=== PATIENT | male | born 1955 | race Caucasian/White ===

== ENCOUNTER 2016-06-29 11:16 | Emergency (ER) | payer OTHER | END 2016-06-29 14:34 | disposition home or self-care (01) | DX: F41.9 Anxiety disorder, unspecified (principal); F31.9 Bipolar disorder, unspecified; I10 Essential (primary) hypertension; E03.9 Hypothyroidism, unspecified ==

== ENCOUNTER 2017-07-13 09:29 | Emergency (ER) | payer OTHER ==
--- NOTE | 2017-07-13 11:17 | ED Physician Documentation ---
History of Present Illness - Stated complaint Stated Complaint: LEFT EAR PX - Chief complaint Chief Complaint: Heent - History obtained from History obtained from: Patient - History of Present Illness Timing: How many days ago (3) Pain level max: 6 Pain level now: 6 - Additonal information Additional information: Patient is a 62-year-old male who presents to the emergency department with left ear pain. Recently started wearing hearing aids. This is been ongoing since Sunday. Nothing makes the pain better. Worse with cold air. No drainage. No fevers. No trauma. Review of Systems Constitutional: denies: Fever, Chills Nose: reports: Rhinorrhea / runny nose, Congestion (Has felt like his sinuses have been congested today.) Throat: denies: Sore throat Cardiac: denies: Chest pain / pressure Respiratory: denies: Cough GI: denies: Nausea, Vomiting, Diarrhea Skin: denies: Rash Musculoskeletal: denies: Neck pain, Back pain Neurologic: denies: Headache PD PAST MEDICAL HISTORY - Past Medical History Past Medical History: Yes Cardiovascular: Hypertension Respiratory: Asthma, Sleep apnea Neuro: None Endocrine/Autoimmune: HyPOthyroidism GI: GERD : None HEENT: None Psych: Depression Musculoskeletal: Chronic back pain Derm: None - Past Surgical History Past Surgical History: Yes General: Colonoscopy, EGD Ortho: Arthroscopic surgery, Carpal Tunnel surgery, Spine surgery, Other - Present Medications Home Medications: Ambulatory Orders Medication Instructions Recorded Confirmed Albuterol Sulfate [Albuterol 2 puffs INH Q6HR 01/17/14 03/01/15 Sulfate Hfa] Amitriptyline [Elavil] 100 mg PO QPM 01/17/14 03/01/15 Carbidopa/Levodopa [Carbidopa-Levo 1 tab PO DAILY 01/17/14 03/01/15 10-100 mg Odt] Cyclobenzaprine [Flexeril] 10 mg PO TID 01/17/14 03/01/15 Fexofenadine [Camila] 180 mg PO DAILY 01/17/14 03/01/15 Fluticasone [Flonase] 1 spray INH DAILY 01/17/14 03/01/15 Fluticasone/Salmeterol 100/50 1 puffs INH DAILY 01/17/14 03/01/15 [Advair 100 Mcg/50 Mcg] Gabapentin 1,200 mg PO TID 01/17/14 03/01/15 Lisinopril 20 mg PO DAILY 01/17/14 03/01/15 Methadone 10 mg PO BID 01/17/14 03/01/15 Omeprazole [PriLOSEC] 20 mg PO BID 01/17/14 03/01/15 cloNIDine HCl [Clonidine HCl] 0.1 mg PO BID 01/25/14 03/01/15 Bupropion HCl [Bupropion HCl Sr] 150 mg PO BID 07/07/14 03/01/15 Calcium Carbonate [Calcium] 500 mg PO DAILY 07/07/14 03/01/15 Hydrochlorothiazide 25 mg PO DAILY 07/07/14 03/01/15 Liothyronine Sodium [Cytomel] 25 mcg PO DAILY 07/07/14 03/01/15 Vardenafil HCl [Levitra] 20 mg PO DAILY PRN 07/07/14 03/01/15 Vit D3-Vit K/Berberine/Hops 1 each PO DAILY 07/07/14 03/01/15 [Ostera Tablet] Modafinil 200 mg 10/27/14 03/01/15 Tadalafil [Cialis] 20 mg PO DAILY 10/27/14 03/01/15 diphenhydrAMINE [Benadryl] 25 mg PO Q4HR PRN 10/27/14 03/01/15 Levothyroxine [Synthroid] 50 mg PO DAILY 03/01/15 03/01/15 Oxycodone HCl/Acetaminophen 1 - 2 tab PO Q4H PRN #15 tablet 06/17/15 [Percocet 5-325 mg Tablet] Ciproflox/Dexameth Otic Drops 4 drops LEFTEAR BID 7 Days #1 07/13/17 [Ciprodex] bottle - Allergies Allergies/Adverse Reactions: Allergies Allergy/AdvReac Type Severity Reaction Status Date / Time Iodine and Iodide Containing Allergy Severe Respiratory Verified 07/13/17 09:40 Produc morphine Allergy Respiratory Verified 07/13/17 09:40 codeine AdvReac Nausea Verified 07/13/17 09:40 promethazine HCl * AdvReac Nausea Verified 07/13/17 09:40 [From Phenergan] contrast dye Allergy Unknown Uncoded 07/13/17 09:40 iv dye Allergy Respiratory Uncoded 07/13/17 09:40 - Social History Does the pt smoke?: No Smoking Status: Never smoker Does the pt drink ETOH?: No Does the pt have substance abuse?: No - Immunizations Immunizations are current?: Yes - POLST Patient has POLST: No PD ED PE NORMAL - Vitals Vital signs reviewed: Yes - General General: Alert and oriented X 3, No acute distress - HEENT HEENT: Moist mucous membranes, Pharynx benign, Other (Right ear is normal. Left ear canal is swollen, erythematous with white drainage. TM appears intact. No mastoid tenderness. Also has mild tenderness over the frontal sinuses bilaterally.) - Neck Neck: Supple, no meningeal sign, No adenopathy - Cardiac Cardiac: RRR, Strong equal pulses - Respiratory Respiratory: No respiratory distress, Clear bilaterally - Derm Derm: Warm and dry - Neuro Neuro: Alert and oriented X 3 - Psych Psych: Normal mood, Normal affect Results - Vitals Vitals: Vital Signs - 24 hr 07/13/17 09:35 Temperature 36.4 C L Heart Rate 69 Respiratory 18 Rate Blood Pressure 136/55 H O2 Saturation 98 Oxygen O2 Source Room air PD MEDICAL DECISION MAKING - ED course Complexity details: considered differential, d/w patient ED course: Patient is a 62-year-old male who presents to the emergency department with what appears to be a viral URI with sinus congestion as well as a left acute otitis externa. This is likely secondary to his hearing aid use. Recommend he clean the hearing aids well. Will place on Ciprodex otic and follow-up with his doctor. Patient is well-appearing, nontoxic. Will hold antibiotics as the sinus congestion just started today. No fevers. Well-appearing. Patient counseled regarding signs and symptoms for which I believe and urgent re- evaluation would be necessary. Patient with good understanding of and agreement to plan and is comfortable going home at this time This document was made in part using voice recognition software. While efforts are made to proofread this document, sound alike and grammatical errors may occur. Departure - Departure Disposition: Home, Self Care Clinical Impression: Otitis externa Qualifiers: Otitis externa type: unspecified type Chronicity: acute Laterality: left Qualified Code(s): H60.502 - Unspecified acute noninfective otitis externa, left ear URI (upper respiratory infection) Qualifiers: URI type: unspecified viral URI Qualified Code(s): J06.9 - Acute upper respiratory infection, unspecified Condition: Good Instructions: ED Otitis Externa Follow-Up: Xu Cha MD [Primary Care Provider] - Within 1 week Prescriptions: Ciproflox/Dexameth Otic Drops [Ciprodex] 4 drops LEFTEAR BID 7 Days #1 bottle Comments: Return if you worsen. This should improve rapidly over the next few days.
[2017-07-13 11:34] VITALS: BP 112/56
== END 2017-07-13 11:29 | disposition home or self-care (01) ==
LOC: ED 09:29
DX: H60.502 Unspecified acute noninfective otitis externa, left ear (principal); J06.9 Acute upper respiratory infection, unspecified; B97.89 Other viral agents as the cause of diseases classified elsewhere; Z97.4 Presence of external hearing-aid; I10 Essential (primary) hypertension; J45.909 Unspecified asthma, uncomplicated; E03.9 Hypothyroidism, unspecified; K21.9 Gastro-esophageal reflux disease without esophagitis
CPT/HCPCS: 99283

== ENCOUNTER 2017-07-17 20:09 | Emergency (ER) | payer OTHER ==
[2017-07-17] MEDS ORDERED: oxyCOD/ACETAMIN 5 MG/325 MG TABLET PO STA (20:56)
--- NOTE | 2017-07-17 20:59 | ED Physician Documentation ---
PD HPI LOWER EXT INJURY - Stated complaint Stated Complaint: R LEG LAC/INJ - Chief complaint Chief Complaint: Ext Problem - History obtained from History obtained from: Patient - History of Present Illness PD HPI LOW EXT INJURY LOCATION: Other (He was chopping wood, the sledgehammer got deflected off the hatchet and hit his leg and he is worried about a recurrent fracture, he fractured that leg at the age of 22. Tetanus is up-to- date.) Review of Systems Constitutional: denies: Fever, Chills Cardiac: denies: Chest pain / pressure, Palpitations Respiratory: denies: Dyspnea, Cough PD PAST MEDICAL HISTORY - Past Medical History Cardiovascular: Hypertension Respiratory: Asthma, Sleep apnea Neuro: None Endocrine/Autoimmune: HyPOthyroidism GI: GERD : None HEENT: None Psych: Depression Musculoskeletal: Chronic back pain Derm: None - Past Surgical History Past Surgical History: Yes General: Colonoscopy, EGD Ortho: Arthroscopic surgery, Carpal Tunnel surgery, Spine surgery, Other - Present Medications Home Medications: Ambulatory Orders Medication Instructions Recorded Confirmed Albuterol Sulfate [Albuterol 2 puffs INH Q6HR 01/17/14 03/01/15 Sulfate Hfa] Amitriptyline [Elavil] 100 mg PO QPM 01/17/14 03/01/15 Carbidopa/Levodopa [Carbidopa-Levo 1 tab PO DAILY 01/17/14 03/01/15 10-100 mg Odt] Cyclobenzaprine [Flexeril] 10 mg PO TID 01/17/14 03/01/15 Fexofenadine [Camila] 180 mg PO DAILY 01/17/14 03/01/15 Fluticasone [Flonase] 1 spray INH DAILY 01/17/14 03/01/15 Fluticasone/Salmeterol 100/50 1 puffs INH DAILY 01/17/14 03/01/15 [Advair 100 Mcg/50 Mcg] Gabapentin 1,200 mg PO TID 01/17/14 03/01/15 Lisinopril 20 mg PO DAILY 01/17/14 03/01/15 Methadone 10 mg PO BID 01/17/14 03/01/15 Omeprazole [PriLOSEC] 20 mg PO BID 01/17/14 03/01/15 cloNIDine HCl [Clonidine HCl] 0.1 mg PO BID 01/25/14 03/01/15 Bupropion HCl [Bupropion HCl Sr] 150 mg PO BID 07/07/14 03/01/15 Calcium Carbonate [Calcium] 500 mg PO DAILY 07/07/14 03/01/15 Hydrochlorothiazide 25 mg PO DAILY 07/07/14 03/01/15 Liothyronine Sodium [Cytomel] 25 mcg PO DAILY 07/07/14 03/01/15 Vardenafil HCl [Levitra] 20 mg PO DAILY PRN 07/07/14 03/01/15 Vit D3-Vit K/Berberine/Hops 1 each PO DAILY 07/07/14 03/01/15 [Ostera Tablet] Modafinil 200 mg 10/27/14 03/01/15 Tadalafil [Cialis] 20 mg PO DAILY 10/27/14 03/01/15 diphenhydrAMINE [Benadryl] 25 mg PO Q4HR PRN 10/27/14 03/01/15 Levothyroxine [Synthroid] 50 mg PO DAILY 03/01/15 03/01/15 Oxycodone HCl/Acetaminophen 1 - 2 tab PO Q4H PRN #15 tablet 06/17/15 [Percocet 5-325 mg Tablet] Ciproflox/Dexameth Otic Drops 4 drops LEFTEAR BID 7 Days #1 07/13/17 [Ciprodex] bottle - Allergies Allergies/Adverse Reactions: Allergies Allergy/AdvReac Type Severity Reaction Status Date / Time Iodine and Iodide Containing Allergy Severe Respiratory Verified 07/13/17 09:40 Produc morphine Allergy Respiratory Verified 07/13/17 09:40 codeine AdvReac Nausea Verified 07/13/17 09:40 promethazine HCl * AdvReac Nausea Verified 07/13/17 09:40 [From Phenergan] contrast dye Allergy Unknown Uncoded 07/13/17 09:40 iv dye Allergy Respiratory Uncoded 07/13/17 09:40 - Social History Does the pt smoke?: No Smoking Status: Never smoker Does the pt drink ETOH?: No Does the pt have substance abuse?: No - Immunizations Immunizations are current?: Yes - POLST Patient has POLST: No PD ED PE NORMAL - Vitals Vital signs reviewed: Yes - General General: Alert and oriented X 3, No acute distress - Extremities Extremities: Other (There is an abrasion over the anterior right mid seals with underlying hematoma and tenderness but no deformity. No other injuries.) - Neuro Neuro: Alert and oriented X 3, Normal speech Results - Vitals Vitals: Vital Signs - 24 hr 07/17/17 20:27 Temperature 36.8 C Heart Rate 72 Respiratory 18 Rate Blood Pressure 135/78 H O2 Saturation 96 Oxygen O2 Source Room air - Rads (name of study) R tib fib Radiology: EMP read contemporaneously (Old healed fracture deformity, no acute disease) PD MEDICAL DECISION MAKING - ED course ED course: He has a contusion of the right leg with overlying hematoma and abrasion, nothing that needs suturing. Tetanus is up to date. X-ray negative for acute disease. Conservative care was advised. Departure - Departure Disposition: Home, Self Care Clinical Impression: Abrasion, right lower leg, initial encounter Contusion of right leg Qualifiers: Encounter type: initial encounter Qualified Code(s): S80.11XA - Contusion of right lower leg, initial encounter Condition: Good Record reviewed to determine appropriate education?: Yes Instructions: ED Contusion Lower Ext Comments: Soap and water and a bandage with an Miguel Angel wrap are all that is necessary, not too tight. Return if worse or for signs of infection, redness, increased swelling, drainage, fevers. Your blood pressure was elevated today on check into the emergency department. This does not mean that you have hypertension, it is a common phenomenon to come to the emergency department and have elevated blood pressure. I recommend that you see your primary care physician within the week to have it rechecked when you are feeling better.
[2017-07-17] MEDS ORDERED: traMADol 50 MG TABLET PO STA (21:06)
--- NOTE | 2017-07-17 21:57 | XRAY Report ---
EXAM: RIGHT TIBIA/FIBULA RADIOGRAPHY EXAM DATE: 07/17/2017 09:35 PM. CLINICAL HISTORY: Leg injury. Pain. COMPARISON: None. TECHNIQUE: 2 views. FINDINGS: Bones: Old mid shaft fracture deformities of tibia and fibula. No acute traumatic or destructive bone abnormality. Joints: The visualized knee and ankle joints are normal. No effusions. Soft Tissues: Normal. No soft tissue swelling. IMPRESSION: No acute bony abnormality. [facility] Referring Provider Line: [phone] SITE ID: [id number]
[2017-07-17 22:15] VITALS: BP 153/99
== END 2017-07-17 22:16 | disposition home or self-care (01) ==
LOC: ED 20:09
DX: S80.811A Abrasion, right lower leg, initial encounter (principal); W22.8XXA Striking against or struck by other objects, initial encounter; I10 Essential (primary) hypertension; E03.9 Hypothyroidism, unspecified
CPT/HCPCS: 73590; 99283; A9270

== ENCOUNTER 2018-02-26 08:00 | Outpatient (CLI) | payer OTHER ==
[2018-02-26 12:30] LABS: BASOPHILS % (AUTO) 0.6 %; EOSINOPHILS # (AUTO) 0.3 10^3/uL (0.0-0.7); EOSINOPHILS % (AUTO) 4.4 %; HGB - HEMOGLOBIN 14.6 g/dL (14.0-18.0); LYMPHOCYTES # (AUTO) 2.2 10^3/uL (1.5-3.5); LYMPHOCYTES % (AUTO) 27.2 %; MEAN CORPUSCULAR HEMOGLOBIN 29.9 pg (27.0-31.0); MEAN CORPUSCULAR HGB CONC 34.5 g/dL (32.0-36.0); MEAN CORPUSCULAR VOLUME 86.5 fL (80.0-94.0); MEAN PLATELET VOLUME 8.5 fL (7.4-11.4); MONOCYTES % (AUTO) 12.3 %; NEUTROPHILS # (AUTO) 4.4 10^3/uL (1.5-6.6); NEUTROPHILS % (AUTO) 55.5 %; PLT - PLATELET COUNT 234 10^3/uL (130-450)
[2018-02-26 12:46] LABS: ALBUMIN 4.2 g/dL (3.2-5.5); ALBUMIN/GLOBULIN RATIO 1.1 (1.0-2.2); ALKALINE PHOSPHATASE 73 IU/L (42-121); ALT ALANINE AMINOTRANSFERASE < 10 IU/L (10-60); AST ASPARTATE AMINOTRANSFERASE 27 IU/L (10-42); BILIRUBIN,TOTAL 0.6 mg/dL (0.2-1.0); BUN - BLOOD UREA NITROGEN 18 mg/dL (6-20); CALCIUM 9.3 mg/dL (8.5-10.3); CARBON DIOXIDE - CO2 30 mmol/L (21-32); CHLORIDE 97 mmol/L (101-111); CHOLESTEROL 172 mg/dL; CREATININE 0.9 mg/dL (0.6-1.2); GFR - MDRD 86 (>89); GLUCOSE 90 mg/dL (70-100); HDL CHOLESTEROL 57 mg/dL; LDL CHOLESTEROL,CALCULATED 98 mg/dL; LDL/HDL RATIO 1.7 (<3.6); SODIUM 136 mmol/L (135-145); TOTAL PROTEIN 7.9 g/dL (6.7-8.2); VLDL CHOLESTEROL 17 mg/dL
== END 2018-02-26 08:01 | disposition home or self-care (01) ==
LOC: LAB.WCP 08:00
PROVIDERS: ATTEND Family Medicine
DX: I10 Essential (primary) hypertension (principal); K21.9 Gastro-esophageal reflux disease without esophagitis
CPT/HCPCS: 36415; 80053; 80061; 83721; 84153; 84443; 85025

== ENCOUNTER 2018-04-19 01:08 | Emergency (ER) | payer OTHER ==
--- NOTE | 2018-04-19 01:42 | ED Physician Documentation ---
History of Present Illness - Stated complaint Stated Complaint: ELECTRICAL SHOCK/SHOULDER PX - Chief complaint Chief Complaint: General - History obtained from History obtained from: Patient - History of Present Illness Timing: Today (approximately 1-2 hours [employer]) Pain level now: 1 - Additonal information Additional information: Patient was repairing a hot water heater in his home tonight when his left hand contacted a bare wire. He says the wire carried a current of 240 V. He is right- hand dominant. He felt some mild chest discomfort and mild paresthesias and numbness in both hands. The symptoms have improved, chest pain resolved. PD PAST MEDICAL HISTORY - Past Medical History Past Medical History: Yes Cardiovascular: Hypertension Respiratory: Asthma, Sleep apnea Endocrine/Autoimmune: HyPOthyroidism GI: GERD : None HEENT: None Psych: Depression Musculoskeletal: Chronic back pain Derm: None - Past Surgical History Past Surgical History: Yes General: Colonoscopy, EGD Ortho: Arthroscopic surgery, Carpal Tunnel surgery, Spine surgery, Other - Present Medications Home Medications: Ambulatory Orders Medication Instructions Recorded Confirmed Albuterol Sulfate [Albuterol 2 puffs INH Q6HR 01/17/14 03/01/15 Sulfate Hfa] Amitriptyline [Elavil] 100 mg PO QPM 01/17/14 03/01/15 Carbidopa/Levodopa [Carbidopa-Levo 1 tab PO DAILY 01/17/14 03/01/15 10-100 mg Odt] Cyclobenzaprine [Flexeril] 10 mg PO TID 01/17/14 03/01/15 Fexofenadine [Camila] 180 mg PO DAILY 01/17/14 03/01/15 Fluticasone [Flonase] 1 spray INH DAILY 01/17/14 03/01/15 Fluticasone/Salmeterol 100/50 1 puffs INH DAILY 01/17/14 03/01/15 [Advair 100 Mcg/50 Mcg] Gabapentin 1,200 mg PO TID 01/17/14 03/01/15 Lisinopril 20 mg PO DAILY 01/17/14 03/01/15 Methadone 10 mg PO BID 01/17/14 03/01/15 Omeprazole [PriLOSEC] 20 mg PO BID 01/17/14 03/01/15 cloNIDine HCl [Clonidine HCl] 0.1 mg PO BID 01/25/14 03/01/15 Bupropion HCl [Bupropion HCl Sr] 150 mg PO BID 07/07/14 03/01/15 Calcium Carbonate [Calcium] 500 mg PO DAILY 07/07/14 03/01/15 Hydrochlorothiazide 25 mg PO DAILY 07/07/14 03/01/15 Liothyronine Sodium [Cytomel] 25 mcg PO DAILY 07/07/14 03/01/15 Vardenafil HCl [Levitra] 20 mg PO DAILY PRN 07/07/14 03/01/15 Vit D3-Vit K/Berberine/Hops 1 each PO DAILY 07/07/14 03/01/15 [Ostera Tablet] Modafinil 200 mg 10/27/14 03/01/15 Tadalafil [Cialis] 20 mg PO DAILY 10/27/14 03/01/15 diphenhydrAMINE [Benadryl] 25 mg PO Q4HR PRN 10/27/14 03/01/15 Levothyroxine [Synthroid] 50 mg PO DAILY 03/01/15 03/01/15 Oxycodone HCl/Acetaminophen 1 - 2 tab PO Q4H PRN #15 tablet 06/17/15 [Percocet 5-325 mg Tablet] Ciproflox/Dexameth Otic Drops 4 drops LEFTEAR BID 7 Days #1 07/13/17 [Ciprodex] bottle - Allergies Allergies/Adverse Reactions: Allergies Allergy/AdvReac Type Severity Reaction Status Date / Time Iodine and Iodide Containing Allergy Severe Respiratory Verified 04/19/18 01:19 Produc morphine Allergy Respiratory Verified 04/19/18 01:19 codeine AdvReac Nausea Verified 04/19/18 01:19 promethazine HCl * AdvReac Nausea Verified 04/19/18 01:19 [From Phenergan] contrast dye Allergy Unknown Uncoded 04/19/18 01:19 iv dye Allergy Respiratory Uncoded 04/19/18 01:19 - Social History Does the pt smoke?: No Smoking Status: Never smoker Does the pt drink ETOH?: No Does the pt have substance abuse?: No - Immunizations Immunizations are current?: Yes - POLST Patient has POLST: No Results - Vitals Vitals: Vital Signs - 24 hr 04/19/18 04/19/18 01:14 02:45 Temperature 36.9 C Heart Rate 71 74 Respiratory 18 18 Rate Blood Pressure 135/74 H 134/65 H O2 Saturation 96 98 Oxygen O2 Source Room air - EKG (time done) No standard instances Rate: Rate (enter#) (68) Rhythm: NSR Bowman: Normal Intervals: Normal NC QRS: Normal Ischemia: Normal ST segments Other comments: Other comments (NSIVCD (no significant change compared to 06/17/15)) - Labs Labs: Laboratory Tests 04/19/18 04/19/18 04/19/18 01:59 01:59 01:59 WBC 10.1 RBC 4.56 L Hgb 13.9 L Hct 40.0 L MCV 87.8 MCH 30.5 MCHC 34.8 RDW 14.2 Plt Count 245 MPV 7.7 Neut # (Auto) 6.0 Lymph # (Auto) 2.4 Douglas # (Auto) 1.3 H Eos # (Auto) 0.3 Baso # (Auto) 0.1 Absolute Nucleated RBC 0.00 Nucleated RBC % 0.0 Sodium 133 L Potassium 3.5 Chloride 99 L Carbon Dioxide 26 Anion Gap 8.0 BUN 29 H Creatinine 1.1 Estimated GFR (MDRD) 68 L Glucose 137 H Calcium 9.0 Total Creatine Kinase 498 H Troponin I < 0.04 Urine Color Urine Clarity Urine pH Ur Specific [place] Urine Protein Urine Glucose (UA) Urine Ketones Urine Occult Blood Urine Nitrite Urine Bilirubin Urine Urobilinogen Ur Leukocyte Esterase Urine RBC Urine WBC Ur Squamous Epith Cells Urine Bacteria Ur Microscopic Review Urine Culture Comments 04/19/18 02:27 WBC RBC Hgb Hct MCV MCH MCHC RDW Plt Count MPV Neut # (Auto) Lymph # (Auto) Douglas # (Auto) Eos # (Auto) Baso # (Auto) Absolute Nucleated RBC Nucleated RBC % Sodium Potassium Chloride Carbon Dioxide Anion Gap BUN Creatinine Estimated GFR (MDRD) Glucose Calcium Total Creatine Kinase Troponin I Urine Color YELLOW Urine Clarity CLEAR Urine pH 6.0 Ur Specific [place] 1.025 Urine Protein NEGATIVE Urine Glucose (UA) NEGATIVE Urine Ketones NEGATIVE Urine Occult Blood NEGATIVE Urine Nitrite NEGATIVE Urine Bilirubin NEGATIVE Urine Urobilinogen 0.2 (NORMAL) Ur Leukocyte Esterase TRACE H Urine RBC 0-5 Urine WBC 0-3 Ur Squamous Epith Cells NONE SEEN Urine Bacteria Rare Ur Microscopic Review INDICATED Urine Culture Comments INDICATED PD MEDICAL DECISION MAKING - ED course Complexity details: reviewed old records, reviewed results, re-evaluated patient, considered differential, d/w patient Departure - Departure Disposition: 01 Home, Self Care Clinical Impression: Electrical injuries Condition: Good Instructions: ED Burn Electrical Discharge Date/Time: 04/19/18 03:16
[2018-04-19 02:02] LABS: BASOPHILS # (AUTO) 0.1 10^3/uL (0.0-0.1); BASOPHILS % (AUTO) 0.6 %; EOSINOPHILS # (AUTO) 0.3 10^3/uL (0.0-0.7); EOSINOPHILS % (AUTO) 3.1 %; HGB - HEMOGLOBIN 13.9 g/dL (14.0-18.0); LYMPHOCYTES # (AUTO) 2.4 10^3/uL (1.5-3.5); LYMPHOCYTES % (AUTO) 24.2 %; MEAN CORPUSCULAR HEMOGLOBIN 30.5 pg (27.0-31.0); MEAN CORPUSCULAR HGB CONC 34.8 g/dL (32.0-36.0); MEAN CORPUSCULAR VOLUME 87.8 fL (80.0-94.0); MEAN PLATELET VOLUME 7.7 fL (7.4-11.4); MONOCYTES # (AUTO) 1.3 10^3/uL (0.0-1.0); MONOCYTES % (AUTO) 12.8 %; NEUTROPHILS % (AUTO) 59.3 %; PLT - PLATELET COUNT 245 10^3/uL (130-450); RED BLOOD COUNT 4.56 10^6/uL (4.70-6.10); RED CELL DISTRIBUTION WIDTH 14.2 % (12.0-15.0); WHITE BLOOD COUNT 10.1 x10^3/uL (4.8-10.8)
[2018-04-19 02:13] LABS: CREATININE 1.1 mg/dL (0.6-1.2)
[2018-04-19 02:30] LABS: BILIRUBIN,URINE NEGATIVE (NEGATIVE); GLUCOSE, URINE (UA) NEGATIVE (NEGATIVE); KETONES,URINE (UA) NEGATIVE (NEGATIVE); LEUKOCYTE ESTERASE, URINE TRACE (NEGATIVE); NITRITE,URINE NEGATIVE (NEGATIVE); OCCULT BLOOD,URINE NEGATIVE (NEGATIVE); PROTEIN,URINE NEGATIVE (NEGATIVE); UROBILINOGEN,URINE 0.2 (NORMAL) E.U./dL (NORMAL)
[2018-04-19 02:31] LABS: CLARITY,URINE CLEAR (CLEAR)
[2018-04-19 02:36] LABS: BACTERIA,URINE Rare /HPF (None Seen); RBC,URINE 0-5 /HPF (0-5); SQUAMOUS EPITHELIAL CELL,UR NONE SEEN (<= Few)
[2018-04-19 03:11] VITALS: BP 134/65
== END 2018-04-19 03:16 | disposition home or self-care (01) ==
LOC: ED 01:08
DX: T75.4XXA Electrocution, initial encounter (principal); R07.9 Chest pain, unspecified; R20.2 Paresthesia of skin; R20.0 Anesthesia of skin; W86.0XXA Exposure to domestic wiring and appliances, initial encounter; Y93.89 Activity, other specified; Y92.009 Unspecified place in unspecified non-institutional (private) residence as the place of occurrence of the external cause; I10 Essential (primary) hypertension
CPT/HCPCS: 36415; 80048; 81001; 81003; 82550; 84484; 85025; 87086; 93005; 99283

== ENCOUNTER 2018-08-26 23:27 | Emergency (ER) | payer OTHER ==
[2018-08-26 23:36] VITALS: BP 139/75
--- NOTE | 2018-08-27 00:45 | ED Physician Documentation ---
PD HPI LOWER EXT INJURY - Stated complaint Stated Complaint: FOOT LAC - Chief complaint Chief Complaint: Laceration - History obtained from History obtained from: Patient - History of Present Illness PD HPI LOW EXT INJURY LOCATION: Right, Foot Type of injury: Laceration Where injury occurred: Home Timing - onset: Enter time (23:00), Today Timing - details: Abrupt onset Improved by: Rest Worsened by: Moving Associated symptoms: No: Weakness, Numbness, Tingling, Swelling, Discolored Contributing factors: No: Anticoagulated Recently seen: Not recently seen - Additional information Additional information: was sharpening a knife at home when it slipped out of his hands, struck right foot causing laceration Review of Systems Skin: reports: Laceration (s) Musculoskeletal: denies: Extremity pain, Extremity swelling, Pain with weight bearing Neurologic: denies: Focal weakness, Numbness PD PAST MEDICAL HISTORY - Past Medical History Past Medical History: Yes Cardiovascular: Hypertension Respiratory: Asthma, Sleep apnea Neuro: None Endocrine/Autoimmune: HyPOthyroidism GI: GERD : None HEENT: None Psych: Depression Musculoskeletal: Chronic back pain Derm: None - Past Surgical History Past Surgical History: Yes General: Colonoscopy, EGD Ortho: Arthroscopic surgery, Carpal Tunnel surgery, Spine surgery, Other - Present Medications Home Medications: Ambulatory Orders Medication Instructions Recorded Confirmed Albuterol Sulfate [Albuterol 2 puffs INH Q6HR 01/17/14 03/01/15 Sulfate Hfa] Amitriptyline [Elavil] 100 mg PO QPM 01/17/14 03/01/15 Carbidopa/Levodopa [Carbidopa-Levo 1 tab PO DAILY 01/17/14 03/01/15 10-100 mg Odt] Cyclobenzaprine [Flexeril] 10 mg PO TID 01/17/14 03/01/15 Fexofenadine [Camila] 180 mg PO DAILY 01/17/14 03/01/15 Fluticasone [Flonase] 1 spray INH DAILY 01/17/14 03/01/15 Fluticasone/Salmeterol 100/50 1 puffs INH DAILY 01/17/14 03/01/15 [Advair 100 Mcg/50 Mcg] Gabapentin 1,200 mg PO TID 01/17/14 03/01/15 Lisinopril 20 mg PO DAILY 01/17/14 03/01/15 Methadone 10 mg PO BID 01/17/14 03/01/15 Omeprazole [PriLOSEC] 20 mg PO BID 01/17/14 03/01/15 cloNIDine HCl [Clonidine HCl] 0.1 mg PO BID 01/25/14 03/01/15 Bupropion HCl [Bupropion HCl Sr] 150 mg PO BID 07/07/14 03/01/15 Calcium Carbonate [Calcium] 500 mg PO DAILY 07/07/14 03/01/15 Hydrochlorothiazide 25 mg PO DAILY 07/07/14 03/01/15 Liothyronine Sodium [Cytomel] 25 mcg PO DAILY 07/07/14 03/01/15 Vardenafil HCl [Levitra] 20 mg PO DAILY PRN 07/07/14 03/01/15 Vit D3-Vit K/Berberine/Hops 1 each PO DAILY 07/07/14 03/01/15 [Ostera Tablet] Modafinil 200 mg 10/27/14 03/01/15 Tadalafil [Cialis] 20 mg PO DAILY 10/27/14 03/01/15 diphenhydrAMINE [Benadryl] 25 mg PO Q4HR PRN 10/27/14 03/01/15 Levothyroxine [Synthroid] 50 mg PO DAILY 03/01/15 03/01/15 Oxycodone HCl/Acetaminophen 1 - 2 tab PO Q4H PRN #15 tablet 06/17/15 [Percocet 5-325 mg Tablet] Ciproflox/Dexameth Otic Drops 4 drops LEFTEAR BID 7 Days #1 07/13/17 [Ciprodex] bottle - Allergies Allergies/Adverse Reactions: Allergies Allergy/AdvReac Type Severity Reaction Status Date / Time Iodine and Iodide Containing Allergy Severe Respiratory Verified 08/26/18 23:35 Produc morphine Allergy Respiratory Verified 08/26/18 23:35 codeine AdvReac Nausea Verified 08/26/18 23:35 promethazine HCl * AdvReac Nausea Verified 08/26/18 23:35 [From Phenergan] alpat Allergy Unknown Uncoded 08/27/18 10:31 contrast dye Allergy Unknown Uncoded 08/26/18 23:35 iv dye Allergy Respiratory Uncoded 08/26/18 23:35 - Social History Does the pt smoke?: No Smoking Status: Never smoker Does the pt drink ETOH?: No Does the pt have substance abuse?: No - Immunizations Immunizations are current?: Yes - POLST Patient has POLST: No PD ED PE NORMAL - Vitals Vital signs reviewed: Yes - General General: Alert and oriented X 3, Well developed/nourished - Extremities Extremities: No tenderness to palpate, Normal ROM s pain, No edema - Neuro Neuro: No motor deficit, No sensory deficit PD ED PE EXPANDED - Extremities Feet visual: 1 - laceration (1 cm) Results - Vitals Vitals: Vital Signs - 24 hr 08/26/18 08/27/18 08/27/18 23:30 00:30 01:23 Temperature 36.4 C L Heart Rate 71 Respiratory 16 17 17 Rate Blood Pressure 139/75 H O2 Saturation 98 08/27/18 01:45 Temperature Heart Rate 71 Respiratory 17 Rate Blood Pressure O2 Saturation 99 Oxygen O2 Source Room air Procedures - Laceration (location) Foot right Medial Length in cm: 1 Wound type: Linear, Into subcut fat Neurovascular status: Sensory intact, Motor intact, Vascular intact Tendon involvement: Tendon intact Anesthesia: Lidocaine 1% Wound Preparation: Chlorhexadine, Irrigated copiously NS, Wound explored Skin layer closure: Nylon, Running, Size #-0 - enter number (4-0) Other: Patient tolerated well, No complications, Neurovascular intact, Dressing applied, Tetanus UTD Complexity: Simple PD MEDICAL DECISION MAKING - ED course Complexity details: considered differential, d/w patient Departure - Departure Disposition: 01 Home, Self Care Clinical Impression: Foot laceration Condition: Good Instructions: ED Laceration Foot Follow-Up: Xu Cha MD [Primary Care Provider] - (Follow up in 7-10 days for suture removal) Discharge Date/Time: 08/27/18 01:46
[2018-08-27] MEDS ORDERED: LIDOCAINE 1% 2 ML VIAL SUBQ STA (00:52)
[2018-08-27] MEDS ORDERED: BACITRACIN OINT TOP STA (01:32)
== END 2018-08-27 01:46 | disposition home or self-care (01) ==
LOC: ED 23:27
DX: S91.311A Laceration without foreign body, right foot, initial encounter (principal); W26.0XXA Contact with knife, initial encounter; Y92.009 Unspecified place in unspecified non-institutional (private) residence as the place of occurrence of the external cause; I10 Essential (primary) hypertension; E03.9 Hypothyroidism, unspecified
CPT/HCPCS: 12001; 99282; 99283

== ENCOUNTER 2018-09-22 21:36 | Emergency (ER) | payer OTHER ==
[2018-09-22 21:45] VITALS: BP 136/47
--- NOTE | 2018-09-22 23:01 | ED Physician Documentation ---
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 he immediately withdrew the tool intact and only c/o pain. denies numbness, weakness. UTD on tetanus Review of Systems Musculoskeletal: reports: Extremity pain (mild). denies: Extremity swelling Neurologic: denies: Focal weakness, Numbness PD PAST MEDICAL HISTORY - Past Medical History Past Medical History: Yes Cardiovascular: Hypertension Respiratory: Asthma, Sleep apnea Neuro: None Endocrine/Autoimmune: HyPOthyroidism GI: GERD : None HEENT: None Psych: Depression Musculoskeletal: Chronic back pain Derm: None - Past Surgical History Past Surgical History: Yes General: Colonoscopy, EGD Ortho: Arthroscopic surgery, Carpal Tunnel surgery, Spine surgery, Other - Present Medications Home Medications: Ambulatory Orders Medication Instructions Recorded Confirmed Albuterol Sulfate [Albuterol 2 puffs INH Q6HR 01/17/14 03/01/15 Sulfate Hfa] Amitriptyline [Elavil] 100 mg PO QPM 01/17/14 03/01/15 Carbidopa/Levodopa [Carbidopa-Levo 1 tab PO DAILY 01/17/14 03/01/15 10-100 mg Odt] Cyclobenzaprine [Flexeril] 10 mg PO TID 01/17/14 03/01/15 Fexofenadine [Camila] 180 mg PO DAILY 01/17/14 03/01/15 Fluticasone [Flonase] 1 spray INH DAILY 01/17/14 03/01/15 Fluticasone/Salmeterol 100/50 1 puffs INH DAILY 01/17/14 03/01/15 [Advair 100 Mcg/50 Mcg] Gabapentin 1,200 mg PO TID 01/17/14 03/01/15 Lisinopril 20 mg PO DAILY 01/17/14 03/01/15 Methadone 10 mg PO BID 01/17/14 03/01/15 Omeprazole [PriLOSEC] 20 mg PO BID 01/17/14 03/01/15 cloNIDine HCl [Clonidine HCl] 0.1 mg PO BID 01/25/14 03/01/15 Bupropion HCl [Bupropion HCl Sr] 150 mg PO BID 07/07/14 03/01/15 Calcium Carbonate [Calcium] 500 mg PO DAILY 07/07/14 03/01/15 Hydrochlorothiazide 25 mg PO DAILY 07/07/14 03/01/15 Liothyronine Sodium [Cytomel] 25 mcg PO DAILY 07/07/14 03/01/15 Vardenafil HCl [Levitra] 20 mg PO DAILY PRN 07/07/14 03/01/15 Vit D3-Vit K/Berberine/Hops 1 each PO DAILY 07/07/14 03/01/15 [Ostera Tablet] Modafinil 200 mg 10/27/14 03/01/15 Tadalafil [Cialis] 20 mg PO DAILY 10/27/14 03/01/15 diphenhydrAMINE [Benadryl] 25 mg PO Q4HR PRN 10/27/14 03/01/15 Levothyroxine [Synthroid] 50 mg PO DAILY 03/01/15 03/01/15 Oxycodone HCl/Acetaminophen 1 - 2 tab PO Q4H PRN #15 tablet 06/17/15 [Percocet 5-325 mg Tablet] Ciproflox/Dexameth Otic Drops 4 drops LEFTEAR BID 7 Days #1 07/13/17 [Ciprodex] bottle Cephalexin [Keflex] 500 mg PO Q6H #19 capsule 09/22/18 - Allergies Allergies/Adverse Reactions: Allergies Allergy/AdvReac Type Severity Reaction Status Date / Time Iodine and Iodide Containing Allergy Severe Respiratory Verified 09/22/18 21:45 Produc morphine Allergy Respiratory Verified 09/22/18 21:45 codeine AdvReac Nausea Verified 09/22/18 21:45 promethazine HCl * AdvReac Nausea Verified 09/22/18 21:45 [From Phenergan] alpat Allergy Unknown Uncoded 09/22/18 21:45 contrast dye Allergy Unknown Uncoded 09/22/18 21:45 iv dye Allergy Respiratory Uncoded 09/22/18 21:45 - Social History Does the pt smoke?: No Smoking Status: Never smoker Does the pt drink ETOH?: No Does the pt have substance abuse?: No - Immunizations Immunizations are current?: Yes - POLST Patient has POLST: No PD ED PE NORMAL - Vitals Vital signs reviewed: Yes - General General: Alert and oriented X 3, No acute distress, Well developed/nourished - Extremities Extremities: No tenderness to palpate, Normal ROM s pain - Neuro Neuro: No motor deficit, No sensory deficit, Other (FROM left hand and digits, including flexion with isolation of PIP, DIP, and MCP joints. LTS intact. brisk capillary refill in left fingertips) Results - Vitals Vitals: Oxygen O2 Source Room air PD MEDICAL DECISION MAKING - ED course Complexity details: considered differential, d/w patient Departure - Departure Disposition: 01 Home, Self Care Clinical Impression: Puncture wound of hand, left Condition: Good Instructions: ED Wound Puncture General Follow-Up: Xu Cha MD [Primary Care Provider] - Prescriptions: Cephalexin [Keflex] 500 mg PO Q6H #19 capsule Discharge Date/Time: 09/22/18 23:55
[2018-09-22] MEDS ORDERED: cephALEXin 250 MG CAPSULE PO STA (23:21)
== END 2018-09-22 23:55 | disposition home or self-care (01) ==
LOC: ED 21:36
DX: S61.432A Puncture wound without foreign body of left hand, initial encounter (principal); W27.4XXA Contact with kitchen utensil, initial encounter; Y93.89 Activity, other specified; Y92.009 Unspecified place in unspecified non-institutional (private) residence as the place of occurrence of the external cause; I10 Essential (primary) hypertension
CPT/HCPCS: 99283; A9270

== ENCOUNTER 2019-01-09 23:27 | Outpatient (CLI) | payer OTHER | END 2019-01-09 23:28 | disposition critical access hospital (66) | LOC: EMS 23:27 | PROVIDERS: ATTEND Surgery | DX: R06.02 Shortness of breath (principal); R07.89 Other chest pain | CPT/HCPCS: A0425; A0429 ==

== ENCOUNTER 2019-01-09 23:38 | Emergency (ER) | payer OTHER ==
--- NOTE | 2019-01-09 23:52 | ED Physician Documentation ---
PD HPI CHEST PAIN - Stated complaint Stated Complaint: SOA/CP - Chief complaint Chief Complaint: Cardiac - History obtained from History obtained from: Patient - History of Present Illness Timing - onset: Today Timing - onset during: Rest Timing - duration: Minutes Timing - details: Abrupt onset, Now resolved Quality: Tightness Location: Substernal Worsened by: Inspiration Associated symptoms: Shortness of air Similar symptoms before: Has not had sx before Recently seen: Not recently seen - Additional information Additional information: 63-year-old male with a history of COPD has spent the past 3 days outside 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 Today he did not feel like working and spent the day inside. This evening he was at home sitting on his couch and he developed pressure and tightness across his chest he went to stand up felt lightheaded and dizzy. He called the ambulance and is come to the emergency department for evaluation. His pain has resolved. He used his inhaler multiple times today and has had a DuoNeb treatment here in the emergency department. He felt he may be having some difficulty with his COPD. Review of Systems Constitutional: reports: Myalgias, Fatigue. denies: Fever Eyes: denies: Decreased vision Ears: denies: Ear pain Nose: denies: Rhinorrhea / runny nose, Congestion Throat: denies: Sore throat Cardiac: reports: Chest pain / pressure. denies: Palpitations, Pedal edema, Calf pain Respiratory: reports: Dyspnea, Cough GI: denies: Abdominal Pain, Nausea, Vomiting : denies: Dysuria, Frequency Skin: denies: Rash Musculoskeletal: reports: Neck pain. denies: Back pain Neurologic: reports: Focal weakness (right hand present for months.). denies: Generalized weakness, Numbness, Difficulty speaking PD PAST MEDICAL HISTORY - Past Medical History Cardiovascular: Hypertension Respiratory: Asthma, Sleep apnea Neuro: None Endocrine/Autoimmune: HyPOthyroidism GI: GERD : None HEENT: None Psych: Depression Musculoskeletal: Chronic back pain Derm: None - Past Surgical History Past Surgical History: Yes General: Colonoscopy, EGD Ortho: Arthroscopic surgery, Carpal Tunnel surgery, Spine surgery, Other - Present Medications Home Medications: Ambulatory Orders Medication Instructions Recorded Confirmed Albuterol Sulfate [Albuterol 2 puffs INH Q6HR 01/17/14 03/01/15 Sulfate Hfa] Amitriptyline [Elavil] 100 mg PO QPM 01/17/14 03/01/15 Carbidopa/Levodopa [Carbidopa-Levo 1 tab PO DAILY 01/17/14 03/01/15 10-100 mg Odt] Cyclobenzaprine [Flexeril] 10 mg PO TID 01/17/14 03/01/15 Fexofenadine [Camila] 180 mg PO DAILY 01/17/14 03/01/15 Fluticasone [Flonase] 1 spray INH DAILY 01/17/14 03/01/15 Fluticasone/Salmeterol 100/50 1 puffs INH DAILY 01/17/14 03/01/15 [Advair 100 Mcg/50 Mcg] Gabapentin 1,200 mg PO TID 01/17/14 03/01/15 Lisinopril 20 mg PO DAILY 01/17/14 03/01/15 Methadone 10 mg PO BID 01/17/14 03/01/15 Omeprazole [PriLOSEC] 20 mg PO BID 01/17/14 03/01/15 cloNIDine HCl [Clonidine HCl] 0.1 mg PO BID 01/25/14 03/01/15 Bupropion HCl [Bupropion HCl Sr] 150 mg PO BID 07/07/14 03/01/15 Calcium Carbonate [Calcium] 500 mg PO DAILY 07/07/14 03/01/15 Hydrochlorothiazide 25 mg PO DAILY 07/07/14 03/01/15 Liothyronine Sodium [Cytomel] 25 mcg PO DAILY 07/07/14 03/01/15 Vardenafil HCl [Levitra] 20 mg PO DAILY PRN 07/07/14 03/01/15 Vit D3-Vit K/Berberine/Hops 1 each PO DAILY 07/07/14 03/01/15 [Ostera Tablet] Modafinil 200 mg 10/27/14 03/01/15 Tadalafil [Cialis] 20 mg PO DAILY 10/27/14 03/01/15 diphenhydrAMINE [Benadryl] 25 mg PO Q4HR PRN 10/27/14 03/01/15 Levothyroxine [Synthroid] 50 mg PO DAILY 03/01/15 03/01/15 Oxycodone HCl/Acetaminophen 1 - 2 tab PO Q4H PRN #15 tablet 06/17/15 [Percocet 5-325 mg Tablet] Ciproflox/Dexameth Otic Drops 4 drops LEFTEAR BID 7 Days #1 07/13/17 [Ciprodex] bottle Cephalexin [Keflex] 500 mg PO Q6H #19 capsule 09/22/18 Levofloxacin [Levaquin] 500 mg PO DAILY PM #7 tablet 01/10/19 - Allergies Allergies/Adverse Reactions: Allergies Allergy/AdvReac Type Severity Reaction Status Date / Time Iodine and Iodide Containing Allergy Severe Respiratory Verified 01/09/19 23:52 Produc morphine Allergy Respiratory Verified 01/09/19 23:52 codeine AdvReac Nausea Verified 01/09/19 23:52 promethazine HCl * AdvReac Nausea Verified 01/09/19 23:52 [From Phenergan] alpat Allergy Unknown Uncoded 01/09/19 23:52 contrast dye Allergy Unknown Uncoded 01/09/19 23:52 iv dye Allergy Respiratory Uncoded 01/09/19 23:52 - Social History Does the pt smoke?: No Smoking Status: Never smoker Does the pt drink ETOH?: No Does the pt have substance abuse?: No - Immunizations Immunizations are current?: Yes - POLST Patient has POLST: No PD ED PE NORMAL - Vitals Vital signs reviewed: Yes (hypertensive ) - General General: Alert and oriented X 3, Well developed/nourished, Other (63 y/o male with dry mucous membranes) - HEENT HEENT: Atraumatic, PERRL, EOMI - Neck Neck: Supple, no meningeal sign, No bony TTP - Cardiac Cardiac: RRR, No murmur - Respiratory Respiratory: No respiratory distress, Clear bilaterally - Abdomen Abdomen: Normal bowel sounds, Soft, Non tender, Non distended, No organomegaly - Back Back: No CVA TTP, No spinal TTP - Derm Derm: Normal color, Warm and dry, No rash - Extremities Extremities: No deformity, No tenderness to palpate, Normal ROM s pain, No edema, No calf tenderness / cord - Neuro Neuro: Alert and oriented X 3, 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, No motor deficit, No sensory deficit, Normal speech Eye Opening: Spontaneous Motor: Obeys Commands Verbal: Oriented GCS Score: 15 - Psych Psych: Normal mood, Normal affect Results - Vitals Vitals: Vital Signs - 24 hr 01/09/19 01/09/19 01/10/19 23:46 23:49 00:48 Temperature Heart Rate 64 61 53 L Respiratory 18 12 15 Rate Blood Pressure 142/74 H 108/65 96/56 L O2 Saturation 97 96 88 L 01/10/19 01/10/19 01/10/19 00:54 01:38 02:11 Temperature 36.2 C L Heart Rate 50 L 60 51 L Respiratory 14 16 16 Rate Blood Pressure 115/63 112/61 O2 Saturation 99 98 01/10/19 01/10/19 03:00 03:45 Temperature Heart Rate 45 L 57 L Respiratory 15 16 Rate Blood Pressure 99/63 127/71 O2 Saturation 100 99 Oxygen O2 Source Room air - EKG (time done) 2343 Rate: Rate (enter#) (66) Rhythm: LAE Intervals: Wide QRS Compare to prior EKG: Unchanged from prior EKG (SPT 04-19-18 no changes) Computer interpretation: Agree with computer - Labs Labs: Laboratory Tests 01/09/19 01/09/19 01/09/19 23:59 23:59 23:59 WBC 9.9 RBC 5.45 Hgb 13.7 L Hct 43.3 MCV 79.4 L MCH 25.1 L MCHC 31.6 L RDW 18.4 H Plt Count 232 MPV 10.1 Neut # (Auto) 5.4 Lymph # (Auto) 2.9 [place] # (Auto) 1.1 H Eos # (Auto) 0.4 Baso # (Auto) 0.0 Absolute Nucleated RBC 0.00 Nucleated RBC % 0.0 Sodium 137 Potassium 3.2 L Chloride 98 L Carbon Dioxide 28 Anion Gap 11.0 BUN 19 Creatinine 1.1 Estimated GFR (MDRD) 68 L Glucose 108 H Calcium 8.9 Total Bilirubin 0.7 AST 33 ALT < 10 L Alkaline Phosphatase 71 Troponin I < 0.04 Total Protein 7.4 Albumin 4.0 Globulin 3.4 Albumin/Globulin Ratio 1.2 Lipase 22 Urine Color Urine Clarity Urine pH Ur Specific [place] Urine Protein Urine Glucose (UA) Urine Ketones Urine Occult Blood Urine Nitrite Urine Bilirubin Urine Urobilinogen Ur Leukocyte Esterase Urine RBC Urine WBC Ur Squamous Epith Cells Urine Bacteria Ur Microscopic Review Urine Culture Comments 01/10/19 00:00 WBC RBC Hgb Hct MCV MCH MCHC RDW Plt Count MPV Neut # (Auto) Lymph # (Auto) [place] # (Auto) Eos # (Auto) Baso # (Auto) Absolute Nucleated RBC Nucleated RBC % Sodium Potassium Chloride Carbon Dioxide Anion Gap BUN Creatinine Estimated GFR (MDRD) Glucose Calcium Total Bilirubin AST ALT Alkaline Phosphatase Troponin I Total Protein Albumin Globulin Albumin/Globulin Ratio Lipase Urine Color YELLOW Urine Clarity CLEAR Urine pH 6.5 Ur Specific [place] 1.015 Urine Protein NEGATIVE Urine Glucose (UA) NEGATIVE Urine Ketones NEGATIVE Urine Occult Blood NEGATIVE Urine Nitrite NEGATIVE Urine Bilirubin NEGATIVE Urine Urobilinogen 0.2 (NORMAL) Ur Leukocyte Esterase SMALL H Urine RBC None Seen Urine WBC 6-10 H Ur Squamous Epith Cells NONE SEEN Urine Bacteria Rare Ur Microscopic Review INDICATED Urine Culture Comments INDICATED Procedures - IVC sono (time) 0140 Bedside IVC sono: IVC measures (cm) (2.35), IVC collapsed c insp (cm) (0.53), Collapsibility index (0.71), Dehydration (esta 1 liter deficit) PD MEDICAL DECISION MAKING - ED course Complexity details: reviewed old records, reviewed results, re-evaluated patient, considered differential, d/w patient ED course: 63-year-old male with a history of COPD had an episode of chest tightness difficulty breathing at home along with some lightheadedness and dizziness. He is found to be dehydrated on interrogation of the inferior vena cava and he is administered normal saline. He did receive a DuoNeb treatment here in the emergency department prior to my examination. Patient has marked improvement with the administration of saline and would like to go home. He does have a urinary tract infection he is given a dose of Rocephin here in the emergency department we will place him on some Levaquin. Departure - Departure Disposition: 01 Home, Self Care Clinical Impression: Dehydration UTI (urinary tract infection) Qualifiers: Urinary tract infection type: acute cystitis Hematuria presence: without hematuria Qualified Code(s): N30.00 - Acute cystitis without hematuria Condition: Stable Instructions: ED UTI Cystitis Male, ED Dehydration Follow-Up: Xu Cha MD [Primary Care Provider] - Prescriptions: Levofloxacin [Levaquin] 500 mg PO DAILY PM #7 tablet
[2019-01-10 00:06] LABS: BASOPHILS % (AUTO) 0.4 %; EOSINOPHILS # (AUTO) 0.4 10^3/uL (0.0-0.7); HGB - HEMOGLOBIN 13.7 g/dL (14.0-18.0); LYMPHOCYTES # (AUTO) 2.9 10^3/uL (1.5-3.5); LYMPHOCYTES % (AUTO) 29.2 %; MEAN CORPUSCULAR HEMOGLOBIN 25.1 pg (27.0-31.0); MEAN CORPUSCULAR HGB CONC 31.6 g/dL (32.0-36.0); MEAN CORPUSCULAR VOLUME 79.4 fL (80.0-94.0); MEAN PLATELET VOLUME 10.1 fL (7.4-11.4); MONOCYTES # (AUTO) 1.1 10^3/uL (0.0-1.0); MONOCYTES % (AUTO) 11.2 %; NEUTROPHILS # (AUTO) 5.4 10^3/uL (1.5-6.6); NEUTROPHILS % (AUTO) 54.8 %; PLT - PLATELET COUNT 232 10^3/uL (130-450); RED BLOOD COUNT 5.45 10^6/uL (4.70-6.10); RED CELL DISTRIBUTION WIDTH 18.4 % (12.0-15.0); WHITE BLOOD COUNT 9.9 x10^3/uL (4.8-10.8)
[2019-01-10 00:21] LABS: ALBUMIN/GLOBULIN RATIO 1.2 (1.0-2.2); ALKALINE PHOSPHATASE 71 IU/L (42-121); ALT ALANINE AMINOTRANSFERASE < 10 IU/L (10-60); AST ASPARTATE AMINOTRANSFERASE 33 IU/L (10-42); BILIRUBIN,TOTAL 0.7 mg/dL (0.2-1.0); BUN - BLOOD UREA NITROGEN 19 mg/dL (6-20); CALCIUM 8.9 mg/dL (8.5-10.3); CARBON DIOXIDE - CO2 28 mmol/L (21-32); CHLORIDE 98 mmol/L (101-111); CREATININE 1.1 mg/dL (0.6-1.2); GFR - MDRD 68 (>89); GLUCOSE 108 mg/dL (70-100); LIPASE 22 U/L (22-51); SODIUM 137 mmol/L (135-145); TOTAL PROTEIN 7.4 g/dL (6.7-8.2)
--- NOTE | 2019-01-10 00:41 | XRAY Report ---
Reason: CP Procedure Date: 01/10/2019 Accession Number: [id number] / [id number] Procedure: XR - Chest 1 View X-Ray CPT Code: 20761 FULL RESULT: EXAM: CHEST RADIOGRAPHY EXAM DATE: 01/10/2019 12:09 AM CLINICAL HISTORY: Chest pain. COMPARISON: CHEST SPECIAL VIEW 03/12/2015 2:37 PM, CHEST 2 VIEW PA/LAT 06/17/2015 12:44 PM, CHEST 2 VIEW PA/LAT 04/20/2016 8:06 AM. TECHNIQUE: 1 view. A total of 2 exposures are provided for review. FINDINGS: Lungs/Pleura: Chronic blunting of the right lateral costophrenic sulcus region is noted. This may be due to pleural thickening/scarring. Additional linear subsegmental left lung base atelectasis and/or scarring again seen. No new airspace disease. There is no significant effusion. No definite pneumothorax. Mediastinum: Cardiac silhouette is within normal limits when accounting for lung volumes and technique. Other: Moderate right shoulder degenerative change. IMPRESSION: Stable appearance of the chest without acute cardiopulmonary abnormality. RADIA
[2019-01-10] MEDS ORDERED: IPRATROPIUM/ALBUTEROL 3 ML NEB INH STA (00:45)
[2019-01-10] MEDS ORDERED: SODIUM CHLORIDE 0.9% 1,000 ML IV ONE (01:43)
[2019-01-10 01:59] LABS: BILIRUBIN,URINE NEGATIVE (NEGATIVE); GLUCOSE, URINE (UA) NEGATIVE (NEGATIVE); KETONES,URINE (UA) NEGATIVE (NEGATIVE); LEUKOCYTE ESTERASE, URINE SMALL (NEGATIVE); NITRITE,URINE NEGATIVE (NEGATIVE); OCCULT BLOOD,URINE NEGATIVE (NEGATIVE); PH,URINE 6.5 PH (5.0-7.5); PROTEIN,URINE NEGATIVE (NEGATIVE); UROBILINOGEN,URINE 0.2 (NORMAL) E.U./dL (NORMAL)
[2019-01-10 02:13] LABS: CLARITY,URINE CLEAR (CLEAR)
[2019-01-10 02:21] LABS: BACTERIA,URINE Rare /HPF (None Seen); RBC,URINE None Seen /HPF (0-5); SQUAMOUS EPITHELIAL CELL,UR NONE SEEN (<= Few)
[2019-01-10] MEDS ORDERED: cefTRIAXone 1 GM in SODIUM CHLORIDE 0.9% MINIBAG 100 ML IV STA (03:21)
[2019-01-10] MEDS ORDERED: POTASSIUM CHLORIDE 20 MEQ TABLET PO STA (04:01)
[2019-01-10 04:35] VITALS: BP 125/67
== END 2019-01-10 04:50 | disposition home or self-care (01) ==
LOC: EDUNIT# → ED 23:38
DX: E86.0 Dehydration (principal); N30.00 Acute cystitis without hematuria; I10 Essential (primary) hypertension; J44.9 Chronic obstructive pulmonary disease, unspecified
CPT/HCPCS: 36415; 71045; 80053; 81001; 83690; 84484; 85025; 87086; 93005; 94640; 96361; 96365; 99284; A9270; 81003

== ENCOUNTER 2019-01-17 11:31 | Outpatient (CLI) | payer OTHER ==
--- NOTE | 2019-01-17 15:57 | MRI Report ---
Reason: CERVICAL RADICULOPATHY, RIGHT Procedure Date: 01/17/2019 Accession Number: [id number] / [id number] Procedure: MRI - Cervical Spine W/O CPT Code: FULL RESULT: EXAM: MRI CERVICAL SPINE WITHOUT CONTRAST EXAM DATE: 01/17/2019 01:26 PM. CLINICAL HISTORY: 63-year-old with neck pain and right upper extremity radiculopathy. Evaluate for cervical pathology. COMPARISONS: None. TECHNIQUE: Multiplanar, multisequence T1-weighted and fluid-sensitive sequences of the cervical spine without contrast. Other: None. FINDINGS: Neurologic Structures: The visualized posterior fossa structures are unremarkable. No signal abnormality in the visualized spinal cord. Alignment: Straightening of the normal cervical lordosis. There is 2-3 mm of posterior subluxation of C5 on C6 and C6 on C7. Bone Marrow: No definite acute fracture seen. There is Modic type I changes seen at C5-C6 that may be degenerative in nature. No definite marrow replacing lesion. Interspace Levels/Facets: Mild endplate degenerative change with mild loss of disk height and disk desiccation seen throughout the cervical spine. C1-C2: There is arthritic changes seen between the dens and anterior arch of C1. C2-C3: Small central disk osteophyte complex. Left uncovertebral osteophyte and arthritic facet disease. Mild spinal canal stenosis. Mild left neural foraminal narrowing. C3-C4: Small central disk osteophyte complex. Bilateral uncovertebral and arthritic facet disease. Mild spinal canal stenosis. Mild right and moderate left neural foraminal narrowing. C4-C5: Small broad-based disk osteophyte complex. Bilateral uncovertebral and arthritic facet disease. Mild spinal canal stenosis. Mild right and moderate to severe left neural foraminal narrowing. C5-C6: Moderate broad-based disk osteophyte complex that abuts the ventral aspect of the cervical cord. Bilateral uncovertebral osteophyte and arthritic facet disease. Mild to moderate spinal canal stenosis. Severe bilateral neural foraminal narrowing. C6-C7: Small amount of broad-based disk osteophyte complex. Bilateral uncovertebral and arthritic facet disease. Mild to moderate spinal canal stenosis. Mild to moderate right and severe left neural foraminal narrowing. C7-T1: Bilateral arthritic facet disease. No spinal canal stenosis. Mild bilateral foraminal narrowing. Musculature: Normal. No edema or fatty atrophy. Other: The paravertebral and prevertebral soft tissues are normal. IMPRESSION: 1. Straightening of the normal cervical lordosis. 2. Multilevel degenerative changes. C2-C3: Mild spinal canal stenosis. Mild left neural foraminal narrowing. C3-C4: Mild spinal canal stenosis. Mild right and moderate left neural foraminal narrowing. C4-C5: Mild spinal canal stenosis. Mild right and moderate to severe left neural foraminal narrowing. C5-C6: Mild to moderate spinal canal stenosis. Severe bilateral neural foraminal narrowing. C6-C7: Mild to moderate spinal canal stenosis. Mild to moderate right and severe left neural foraminal narrowing. C7-T1: No spinal canal stenosis. Mild bilateral foraminal narrowing. RADIA
== END 2019-01-17 11:32 | disposition home or self-care (01) ==
LOC: DI 11:31
PROVIDERS: ATTEND Physician Assistant
DX: M50.31 Other cervical disc degeneration, high cervical region (principal); M48.02 Spinal stenosis, cervical region; M47.812 Spondylosis without myelopathy or radiculopathy, cervical region; M43.12 Spondylolisthesis, cervical region
CPT/HCPCS: 72141

== ENCOUNTER 2019-06-24 20:57 | Emergency (ER) | payer OTHER ==
[2019-06-24] MEDS ORDERED: SULFAMETH/TRIMETH DS 800/160 MG TABLET PO STA (21:58)
[2019-06-24] MEDS ORDERED: cefTRIAXone 2 GM VIAL IM STA (21:58)
--- NOTE | 2019-06-24 22:00 | ED Physician Documentation ---
PD HPI LOWER EXT INJURY - Stated complaint Stated Complaint: L LEG REDNESS/SWELLING/FEVER - Chief complaint Chief Complaint: Ext Problem - History obtained from History obtained from: Patient (Few days ago he scraped his left seals while walking at night. Today he has redness and pain tracking up the medial left thigh. No fevers or chills.) Review of Systems Constitutional: denies: Fever, Chills Cardiac: denies: Chest pain / pressure, Palpitations Respiratory: denies: Dyspnea, Cough GI: denies: Abdominal Pain PD PAST MEDICAL HISTORY - Past Medical History Cardiovascular: Hypertension Respiratory: Asthma, Sleep apnea Neuro: None Endocrine/Autoimmune: HyPOthyroidism GI: GERD : None HEENT: None Psych: Depression Musculoskeletal: Chronic back pain Derm: None - Past Surgical History Past Surgical History: Yes General: Colonoscopy, EGD Ortho: Arthroscopic surgery, Carpal Tunnel surgery, Spine surgery, Other - Present Medications Home Medications: Ambulatory Orders Medication Instructions Recorded Confirmed Albuterol Sulfate [Albuterol 2 puffs INH Q6HR 01/17/14 03/01/15 Sulfate Hfa] Amitriptyline [Elavil] 100 mg PO QPM 01/17/14 03/01/15 Carbidopa/Levodopa [Carbidopa-Levo 1 tab PO DAILY 01/17/14 03/01/15 10-100 mg Odt] Cyclobenzaprine [Flexeril] 10 mg PO TID 01/17/14 03/01/15 Fexofenadine [Camila] 180 mg PO DAILY 01/17/14 03/01/15 Fluticasone [Flonase] 1 spray INH DAILY 01/17/14 03/01/15 Fluticasone/Salmeterol 100/50 1 puffs INH DAILY 01/17/14 03/01/15 [Advair 100 Mcg/50 Mcg] Gabapentin 1,200 mg PO TID 01/17/14 03/01/15 Lisinopril 20 mg PO DAILY 01/17/14 03/01/15 Methadone 10 mg PO BID 01/17/14 03/01/15 Omeprazole [PriLOSEC] 20 mg PO BID 01/17/14 03/01/15 cloNIDine HCL [Clonidine HCl] 0.1 mg PO BID 01/25/14 03/01/15 Bupropion HCl [Bupropion HCl Sr] 150 mg PO BID 07/07/14 03/01/15 Calcium Carbonate [Calcium] 500 mg PO DAILY 07/07/14 03/01/15 Hydrochlorothiazide 25 mg PO DAILY 07/07/14 03/01/15 Liothyronine Sodium [Cytomel] 25 mcg PO DAILY 07/07/14 03/01/15 Vardenafil HCl [Levitra] 20 mg PO DAILY PRN 07/07/14 03/01/15 Vit D3-Vit K/Berberine/Hops 1 each PO DAILY 07/07/14 03/01/15 [Ostera Tablet] Modafinil 200 mg 10/27/14 03/01/15 Tadalafil [Cialis] 20 mg PO DAILY 10/27/14 03/01/15 diphenhydrAMINE [Benadryl] 25 mg PO Q4HR PRN 10/27/14 03/01/15 Levothyroxine [Synthroid] 50 mg PO DAILY 03/01/15 03/01/15 Oxycodone HCl/Acetaminophen 1 - 2 tab PO Q4H PRN #15 tablet 06/17/15 [Percocet 5-325 mg Tablet] Ciproflox/Dexameth Otic Drops 4 drops LEFTEAR BID 7 Days #1 07/13/17 [Ciprodex] bottle Cephalexin [Keflex] 500 mg PO Q6H #19 capsule 09/22/18 Levofloxacin [Levaquin] 500 mg PO DAILY PM #7 tablet 01/10/19 Cephalexin [Keflex] 500 mg PO Q6H #28 capsule 06/24/19 Sulfamethoxazole/Trimethoprim 1 each PO BID 7 Days #14 tablet 06/24/19 [Sulfamethoxazole-Tmp Ds Tablet] - Allergies Allergies/Adverse Reactions: Allergies Allergy/AdvReac Type Severity Reaction Status Date / Time Iodine and Iodide Containing Allergy Severe Respiratory Verified 06/24/19 21:08 Produc morphine Allergy Respiratory Verified 06/24/19 21:08 codeine AdvReac Nausea Verified 06/24/19 21:08 promethazine HCl * AdvReac Nausea Verified 06/24/19 21:08 [From Phenergan] alpat Allergy Unknown Uncoded 01/09/19 23:52 contrast dye Allergy Unknown Uncoded 01/09/19 23:52 iv dye Allergy Respiratory Uncoded 01/09/19 23:52 - Social History Does the pt smoke?: No Smoking Status: Never smoker Does the pt drink ETOH?: No Does the pt have substance abuse?: No - Immunizations Immunizations are current?: Yes - POLST Patient has POLST: No PD ED PE NORMAL - Vitals Vital signs reviewed: Yes - General General: Alert and oriented X 3, No acute distress - Extremities Extremities: Other (There is a scrape just below the knee on the left with a mild case of lymphangitis of the medial thigh to mid thigh.) - Neuro Neuro: Alert and oriented X 3, Normal speech Results - Vitals Vitals: Vital Signs - 24 hr 06/24/19 21:08 Temperature 36.9 C Heart Rate 66 Respiratory 17 Rate Blood Pressure 115/51 L O2 Saturation 99 Oxygen O2 Source Room air Departure - Departure Disposition: 01 Home, Self Care Clinical Impression: Lymphangitis Condition: Good Record reviewed to determine appropriate education?: Yes Instructions: ED Lymphangitis Prescriptions: Cephalexin [Keflex] 500 mg PO Q6H #28 capsule Sulfamethoxazole/Trimethoprim [Sulfamethoxazole-Tmp Ds Tablet] 1 each PO BID 7 Days #14 tablet Comments: Return for new or worsening symptoms, especially high fevers, or if the redness generally worsens. Redness may not go away for a day or 2 but as long as it does not get much worse that is okay. Follow-up with your doctor in 3 days for recheck.
[2019-06-24 22:04] VITALS: BP 112/74
== END 2019-06-24 22:34 | disposition home or self-care (01) ==
LOC: ED 20:57
DX: L03.126 Acute lymphangitis of left lower limb (principal); S80.812A Abrasion, left lower leg, initial encounter; W45.8XXA Other foreign body or object entering through skin, initial encounter; Y93.01 Activity, walking, marching and hiking; I10 Essential (primary) hypertension
CPT/HCPCS: 96372; 99283; A9270

== ENCOUNTER 2020-02-03 17:22 | Outpatient (CLI) | payer OTHER ==
[2020-02-03 18:38] LABS: BASOPHILS # (AUTO) 0.1 10^3/uL (0.0-0.1); BASOPHILS % (AUTO) 0.6 %; EOSINOPHILS # (AUTO) 0.5 10^3/uL (0.0-0.7); EOSINOPHILS % (AUTO) 4.3 %; HGB - HEMOGLOBIN 14.7 g/dL (14.0-18.0); LYMPHOCYTES # (AUTO) 3.1 10^3/uL (1.5-3.5); LYMPHOCYTES % (AUTO) 29.4 %; MEAN CORPUSCULAR HEMOGLOBIN 30.2 pg (27.0-31.0); MEAN CORPUSCULAR HGB CONC 34.3 g/dL (32.0-36.0); MEAN CORPUSCULAR VOLUME 88.3 fL (80.0-94.0); MEAN PLATELET VOLUME 10.4 fL (7.4-11.4); MONOCYTES # (AUTO) 1.3 10^3/uL (0.0-1.0); MONOCYTES % (AUTO) 12.5 %; NEUTROPHILS # (AUTO) 5.5 10^3/uL (1.5-6.6); NEUTROPHILS % (AUTO) 52.6 %; PLT - PLATELET COUNT 261 10^3/uL (130-450); RED BLOOD COUNT 4.86 10^6/uL (4.70-6.10); RED CELL DISTRIBUTION WIDTH 14.7 % (12.0-15.0); WHITE BLOOD COUNT 10.5 x10^3/uL (4.8-10.8)
[2020-02-03 19:04] LABS: ALBUMIN 4.2 g/dL (3.2-5.5); ALBUMIN/GLOBULIN RATIO 1.1 (1.0-2.2); ALKALINE PHOSPHATASE 71 IU/L (42-121); ALT ALANINE AMINOTRANSFERASE 20 IU/L (10-60); AST ASPARTATE AMINOTRANSFERASE 24 IU/L (10-42); BILIRUBIN,TOTAL 0.7 mg/dL (0.2-1.0); BUN - BLOOD UREA NITROGEN 18 mg/dL (6-20); CALCIUM 9.6 mg/dL (8.5-10.3); CARBON DIOXIDE - CO2 27 mmol/L (21-32); CHLORIDE 99 mmol/L (101-111); CHOL/HDL RATIO 3.5 (<5.0); CHOLESTEROL 188 mg/dL; CREATININE 0.9 mg/dL (0.6-1.2); GLUCOSE 121 mg/dL (70-100); HDL CHOLESTEROL 54 mg/dL; LDL CHOLESTEROL,CALCULATED 97 mg/dL; LDL/HDL RATIO 1.8 (<3.6); SODIUM 135 mmol/L (135-145); TOTAL PROTEIN 8.2 g/dL (6.7-8.2); VLDL CHOLESTEROL 37 mg/dL
[2020-02-03 19:46] LABS: HB2 TOTAL 15.5 g/dL; HEMOGLOBIN A1C 0.58 g/dL; HEMOGLOBIN A1C % 5.6 % (4.6-6.2)
== END 2020-02-03 23:59 | disposition home or self-care (01) ==
LOC: LAB.WCP 17:22
PROVIDERS: ATTEND Family Medicine
DX: R73.01 Impaired fasting glucose (principal); I10 Essential (primary) hypertension; Z12.5 Encounter for screening for malignant neoplasm of prostate; E03.9 Hypothyroidism, unspecified; R53.83 Other fatigue
CPT/HCPCS: 36415; 80050; 80061; 83036; 83721; 84153

== ENCOUNTER 2020-03-05 08:00 | Outpatient (CLI) | payer OTHER | END 2020-03-05 23:59 | disposition home or self-care (01) | LOC: LAB.WCP 08:00 | PROVIDERS: ATTEND Urology | DX: E29.1 Testicular hypofunction (principal); Z12.5 Encounter for screening for malignant neoplasm of prostate | CPT/HCPCS: 36415; 84153; 84403 ==

== ENCOUNTER 2020-04-26 09:04 | Outpatient (CLI) | payer MEDICARE, OTHER ==
--- NOTE | 2020-04-26 16:55 | XRAY Report ---
PROCEDURE: Ribs 2 View RT INDICATIONS: RIB PAIN,RT SIDED TECHNIQUE: 3 views of the right ribs were acquired. COMPARISON: Chest x-ray 01/09/2019 FINDINGS: Surgical changes and devices: None. Bones and chest wall: No fractures or dislocations. No suspicious bony lesions. Overlying soft tis sues appear unremarkable. Lungs and pleura: There is blunting of the right costophrenic angle. This is unchanged. IMPRESSION: 1. No visualized acute fracture or dislocation. However, occult injury cannot be excluded. Recommend short interval imaging follow-up in 7-10 days as clinically indicated for additional evaluation. 2. Unchanged left costophrenic angle blunting, suggestive of scarring. Reviewed by: Lorena Michaud MD on 04/26/2020 4:53 PM PST Approved by: Lorena Michaud MD on 04/26/2020 4:53 PM [facility] [[email or web address]] Station ID: [id number]
== END 2020-04-26 09:05 | disposition home or self-care (01) ==
LOC: DI 09:04
PROVIDERS: ATTEND Physician Assistant
DX: R07.81 Pleurodynia (principal)

== ENCOUNTER 2020-07-18 13:06 | Outpatient (CLI) | payer MEDICARE, OTHER ==
--- NOTE | 2020-07-18 14:42 | Ultrasound Report ---
PROCEDURE: Testicle INDICATIONS: RT TESTICULAR PAIN TECHNIQUE: Real-time scanning was performed of the scrotum and testicles, with image documentation. Color and p ulse Doppler interrogation was performed of both testicles. COMPARISON: None. FINDINGS: Right: Testicle is normal in size at 3.5 x 1.5 x 2.2 cm, and homogenous in echotexture. Epididymis i s normal in size. Multiple anechoic cystic lesions with the largest measuring 6 mm in greatest diamet er. No hydrocele. A few mildly prominent peritesticular vessels. Measuring slightly greater than 2 mm . Overlying scrotal skin is normal in thickness. Left: Testicle is normal in size at 2.0 x 1.7 x 1.8 cm, and homogeneous in echotexture. Epididymis i s normal in size. Anechoic cystic lesion measuring 2 mm in greatest diameter. Small left-sided hydroc adair. A few mildly prominent peritesticular vessels measuring slightly greater than 2 mm. A few echoge luis m structures suggestive of calcifications are noted with the largest measuring 3 mm in greatest monico meter likely representing scrotal less, of unlikely clinical significance. Doppler: Color and pulse Doppler demonstrate normal and symmetric arterial flow in both testicles. IMPRESSION: No evidence of testicular torsion or suspicious mass. Bilateral varicoceles. Small left-sided hydrocele. Bilateral subcentimeter epididymal head cysts/spermatoceles. Reviewed by: Kvng Moralez DO on 07/18/2020 1:41 PM NABIL Approved by: Kvng Moralez DO on 07/18/2020 1:41 PM [facility] Station ID: [id number]
== END 2020-07-18 13:07 | disposition home or self-care (01) ==
LOC: DI 13:06
PROVIDERS: ATTEND Physician Assistant
DX: I86.1 Scrotal varices (principal); N43.3 Hydrocele, unspecified; R93.89 Abnormal findings on diagnostic imaging of other specified body structures; Z79.891 Long term (current) use of opiate analgesic
CPT/HCPCS: 93005

== ENCOUNTER 2020-07-18 14:19 | Outpatient (CLI) | payer MEDICARE, OTHER | END 2020-07-18 14:20 | disposition home or self-care (01) | LOC: RT 14:19 | PROVIDERS: ATTEND Registered Nurse | DX: Z79.891 Long term (current) use of opiate analgesic (principal) | CPT/HCPCS: 93005 ==

== ENCOUNTER 2020-09-27 07:00 | Outpatient (CLI) | payer MEDICARE, OTHER | END 2020-09-27 23:59 | disposition home or self-care (01) | LOC: LAB.WCP 07:00 | PROVIDERS: ATTEND Internal Medicine | DX: E29.1 Testicular hypofunction (principal) | CPT/HCPCS: 36415; 80053; 80061; 81599; 82043; 82533; 82570; 82728; 83002; 83036; 83540; 83721; 84146; 84153; 84402; 84403; 84439; 84443; 84466; 85025 ==

== ENCOUNTER 2020-11-11 05:33 | Outpatient (CLI) | payer MEDICARE, OTHER | END 2020-11-11 05:34 | disposition critical access hospital (66) | LOC: EMS 05:33 | DX: R06.02 Shortness of breath (principal) | CPT/HCPCS: A0425; A0427 ==

== ENCOUNTER 2020-11-11 05:50 | Emergency (ER) | payer MEDICARE, OTHER ==
--- OUTSIDE RECORDS SUMMARY | 2020-11-11 06:00 | EXTERNAL MEDICAL SUMMARY RPT | Continuity of Care Document ---
:1955 Demographics Phone Unavailable Preferred Language French Marital Status Unknown Worship Affiliation Unknown Race Unknown Ethnic Group Unknown Author Organization [facility] Address [address] [phone] Phone Care Team Providers Name Role Phone Langrock Unavailable Unavailable Langrock Unavailable Unavailable Problems date description facility [id number] Obstructive sleep apnea (adult) (pediat matthew) [facility] 20200819 Insomnia, unspecified [facility] 20200819 Hypersomnia, unspecified [facility] Procedures date description facility [id number] General Physician [facility] 20200819 Finding [facility] 20200819 Diagnosis [facility]
[2020-11-11] MEDS ORDERED: HEPARIN 25000UNITS/500ML (D5W) 25,000 UNIT/500 ML BAG IV ONE (06:04)
--- NOTE | 2020-11-11 06:19 | ED Physician Documentation ---
PD HPI CHEST PAIN - Stated complaint Stated Complaint: CP - Chief complaint Chief Complaint: Cardiac - History obtained from History obtained from: Patient, EMS - History of Present Illness Timing - onset: How many days ago (2) Timing - onset during: Rest Timing - duration: Days (2) Timing - details: Gradual onset, Still present, Waxing and waning Quality: Sharp, Pain Location: Left chest Radiation: Neck, Left upper extremity Improved by: Nitro Associated symptoms: Shortness of air, Diaphoresis, Nausea, Feeling faint / dizzy, Palpitations, Other (impending doom) Similar symptoms before: Has not had sx before Recently seen: Not recently seen - Additional information Additional information: 65-year-old male with a history of COPD and sleep apnea has had 2 days of intermittent chest pressure and palpitations and this morning when he awoke he felt that he was going to . He developed dyspnea when he developed chest pain his called 911 and the medics have brought the patient to the hospital.. In route to the hospital the patient developed acute chest pain and had dynamic changes in his electrocardiogram including ST elevation in anterior and inferior leads. He was given nitroglycerin with resolution of his pain and he arrives to the emergency department diaphoretic and nauseous. Review of Systems Constitutional: denies: Fever Cardiac: reports: Chest pain / pressure, Palpitations Respiratory: reports: Dyspnea GI: reports: Nausea. denies: Vomiting PD PAST MEDICAL HISTORY - Past Medical History Cardiovascular: Hypertension Respiratory: Asthma, Sleep apnea Neuro: None Endocrine/Autoimmune: HyPOthyroidism GI: GERD : None HEENT: None Psych: Depression Musculoskeletal: Chronic back pain Derm: None - Past Surgical History Past Surgical History: Yes General: Colonoscopy, EGD Ortho: Arthroscopic surgery, Carpal Tunnel surgery, Spine surgery, Other - Present Medications Home Medications: Ambulatory Orders Medication Instructions Recorded Confirmed Albuterol Sulfate [Albuterol 2 puffs INH Q6HR 01/17/14 03/01/15 Sulfate Hfa] Amitriptyline [Elavil] 100 mg PO QPM 01/17/14 03/01/15 Carbidopa/Levodopa [Carbidopa-Levo 1 tab PO DAILY 01/17/14 03/01/15 10-100 mg Odt] Cyclobenzaprine [Flexeril] 10 mg PO TID 01/17/14 03/01/15 Fexofenadine [Camila] 180 mg PO DAILY 01/17/14 03/01/15 Fluticasone [Flonase] 1 spray INH DAILY 01/17/14 03/01/15 Fluticasone/Salmeterol 100/50 1 puffs INH DAILY 01/17/14 03/01/15 [Advair 100 Mcg/50 Mcg] Gabapentin 1,200 mg PO TID 01/17/14 03/01/15 Lisinopril 20 mg PO DAILY 01/17/14 03/01/15 Methadone [Methadone Hcl] 10 mg PO BID 01/17/14 03/01/15 Omeprazole [PriLOSEC] 20 mg PO BID 01/17/14 03/01/15 cloNIDine HCL [Clonidine HCl] 0.1 mg PO BID 01/25/14 03/01/15 Bupropion HCl [Bupropion HCl Sr] 150 mg PO BID 07/07/14 03/01/15 Calcium Carbonate [Calcium] 500 mg PO DAILY 07/07/14 03/01/15 Hydrochlorothiazide 25 mg PO DAILY 07/07/14 03/01/15 Liothyronine Sodium [Cytomel] 25 mcg PO DAILY 07/07/14 03/01/15 Vardenafil HCl [Levitra] 20 mg PO DAILY PRN 07/07/14 03/01/15 Vit D3-Vit K/Berberine/Hops 1 each PO DAILY 07/07/14 03/01/15 [Ostera Tablet] Tadalafil [Cialis] 20 mg PO DAILY 10/27/14 03/01/15 diphenhydrAMINE [Benadryl] 25 mg PO Q4HR PRN 10/27/14 03/01/15 modafiniL [Modafinil] 200 mg 10/27/14 03/01/15 Levothyroxine [Synthroid] 50 mg PO DAILY 03/01/15 03/01/15 Oxycodone HCl/Acetaminophen 1 - 2 tab PO Q4H PRN #15 tablet 06/17/15 [Percocet 5-325 mg Tablet] Ciproflox/Dexameth Otic Drops 4 drops LEFTEAR BID 7 Days #1 07/13/17 [Ciprodex] bottle cephALEXin [Keflex] 500 mg PO Q6H #19 capsule 09/22/18 Levofloxacin [Levaquin] 500 mg PO DAILY PM #7 tablet 01/10/19 Sulfamethoxazole/Trimethoprim 1 each PO BID 7 Days #14 tablet 06/24/19 [Sulfamethoxazole-Tmp Ds Tablet] cephALEXin [Keflex] 500 mg PO Q6H #28 capsule 06/24/19 - Allergies Allergies/Adverse Reactions: Allergies Allergy/AdvReac Type Severity Reaction Status Date / Time Iodine and Iodide Containing Allergy Severe Respiratory Verified 11/11/20 06:07 Produc morphine Allergy Respiratory Verified 11/11/20 06:07 codeine AdvReac Nausea Verified 11/11/20 06:07 promethazine HCl * AdvReac Nausea Verified 11/11/20 06:07 [From Phenergan] alpat Allergy Unknown Uncoded 01/09/19 23:52 contrast dye Allergy Unknown Uncoded 01/09/19 23:52 iv dye Allergy Respiratory Uncoded 01/09/19 23:52 - Social History Does the pt smoke?: No Smoking Status: Never smoker Does the pt drink ETOH?: No Does the pt have substance abuse?: No - Immunizations Immunizations are current?: Yes - POLST Patient has POLST: No PD ED PE NORMAL - Vitals Vital signs reviewed: Yes (Tachypneic and hypertensive) - General General: Alert and oriented X 3, Well developed/nourished, Other (Patient is diaphoretic dyspneic and anxious.) - HEENT HEENT: Atraumatic, PERRL, EOMI - Neck Neck: Supple, no meningeal sign - Cardiac Cardiac: No murmur, Other (Tachycardic) - Respiratory Respiratory: Other (Tachypneic with diminished breath sounds) - Abdomen Abdomen: Soft, Non tender - Back Back: No CVA TTP, No spinal TTP - Derm Derm: Normal color, Warm and dry, No rash - Extremities Extremities: No deformity, No edema - Neuro Neuro: Alert and oriented X 3, reed fixer 2-12 intact, No motor deficit, No sensory deficit, Normal speech Eye Opening: Spontaneous Motor: Obeys Commands Verbal: Oriented GCS Score: 15 - Psych Psych: Normal mood, Normal affect Results - Vitals Vitals: Vital Signs - 24 hr 11/11/20 06:05 Respiratory 27 H Rate Blood Pressure 133/87 H O2 Saturation 98 Oxygen O2 Source Room air - EKG (time done) 0552 Rate: Rate (enter#) (99) Rhythm: NSR Intervals: RBBB Ischemia: Q waves Compare to prior EKG: Changed from prior EKG (Since prior tracing done 01/09/2019 the rate is increased. Since the tracing done earlier today the ST elevations seen have now resolved.) Computer interpretation: Agree with computer PD MEDICAL DECISION MAKING - ED course Complexity details: reviewed old records, reviewed results, re-evaluated patient, considered differential, d/w patient ED course: 65-year-old male with a history of COPD and sleep apnea presents to the emergency department with chest palpitations feeling of impending doom and developed chest pain in route to the hospital in the ambulance with dynamic changes in his electrocardiogram including ST elevations which resolved with the use of nitroglycerin. His care in the emergency department here is brief and consists of administration of heparin and transfer the patient to the [facility] for transfer to [facility] emergency department with Dr. Johnathon segal. Departure - Departure Disposition: 02 Transfer Acute Care Hosp Clinical Impression: STEMI (ST elevation myocardial infarction) Qualifiers: Involved coronary artery: unspecified coronary artery Qualified Code(s): I21.3 - ST elevation (STEMI) myocardial infarction of unspecified site
[2020-11-11 06:37] VITALS: BP 149/84
[2020-11-11] MEDS ORDERED: HEPARIN 25000UNITS/500ML (D5W) 25,000 UNIT/500 ML BAG IV SCH (07:00)
== END 2020-11-11 06:40 | disposition short-term general hospital (02) ==
LOC: EDUNIT# → EDBD → ED 05:50 → SUPCPDRO 05:50 → ED 06:40
DX: I21.3 ST elevation (STEMI) myocardial infarction of unspecified site (principal); I10 Essential (primary) hypertension; J44.9 Chronic obstructive pulmonary disease, unspecified; I45.10 Unspecified right bundle-branch block; G47.33 Obstructive sleep apnea (adult) (pediatric)
CPT/HCPCS: 93005; 96374; 99284

== ENCOUNTER 2020-11-12 23:18 | Outpatient (CLI) | payer MEDICARE, OTHER | END 2020-11-12 23:19 | disposition critical access hospital (66) | LOC: EMS 23:18 | DX: R00.0 Tachycardia, unspecified (principal); R07.89 Other chest pain | CPT/HCPCS: A0425; A0429 ==

== ENCOUNTER 2020-11-12 23:35 | Emergency (ER) | payer MEDICARE, OTHER ==
--- OUTSIDE RECORDS SUMMARY | 2020-11-12 23:44 | EXTERNAL MEDICAL SUMMARY RPT | Continuity of Care Document ---
:1955 Demographics Phone Unavailable Preferred Language Mongolian Marital Status Unknown Gnosticist Affiliation Unknown Race Unknown Ethnic Group Unknown Author Organization [facility] Address [address] [phone] Phone Care Team Providers Name Role Phone Langrock Unavailable Unavailable Langrock Unavailable Unavailable Problems date description facility 20200819 Obstructive sleep apnea (adult) (pediat matthew) [facility] 20200819 Insomnia, unspecified [facility] 20200819 Hypersomnia, unspecified [facility] Procedures date description facility [id number] General Physician [facility] 20200819 Finding [facility] 20200819 Diagnosis [facility]
[2020-11-12] MEDS ORDERED: SODIUM CHLORIDE 0.9% 1,000 ML IV STA (23:49)
[2020-11-12] MEDS ORDERED: METOPROLOL 5 MG/5 ML VIAL IVP STA (23:49)
[2020-11-13 00:09] LABS: BASOPHILS # (AUTO) 0.1 10^3/uL (0.0-0.1); BASOPHILS % (AUTO) 0.5 %; EOSINOPHILS # (AUTO) 0.6 10^3/uL (0.0-0.7); EOSINOPHILS % (AUTO) 5.5 %; HCT - HEMATOCRIT 43.5 % (42.0-52.0); HGB - HEMOGLOBIN 14.6 g/dL (14.0-18.0); LYMPHOCYTES # (AUTO) 2.3 10^3/uL (1.5-3.5); LYMPHOCYTES % (AUTO) 21.6 %; MEAN CORPUSCULAR HEMOGLOBIN 28.1 pg (27.0-31.0); MEAN CORPUSCULAR HGB CONC 33.6 g/dL (32.0-36.0); MEAN CORPUSCULAR VOLUME 83.7 fL (80.0-94.0); MEAN PLATELET VOLUME 9.7 fL (7.4-11.4); MONOCYTES # (AUTO) 1.1 10^3/uL (0.0-1.0); MONOCYTES % (AUTO) 10.7 %; NEUTROPHILS # (AUTO) 6.4 10^3/uL (1.5-6.6); NEUTROPHILS % (AUTO) 61.4 %; PLT - PLATELET COUNT 286 10^3/uL (130-450); RED CELL DISTRIBUTION WIDTH 17.2 % (12.0-15.0); WHITE BLOOD COUNT 10.4 x10^3/uL (4.8-10.8)
[2020-11-13 00:23] LABS: ALBUMIN 4.3 g/dL (3.2-5.5); ALBUMIN/GLOBULIN RATIO 1.3 (1.0-2.2); BILIRUBIN,TOTAL 0.7 mg/dL (0.2-1.0); CALCIUM 9.4 mg/dL (8.5-10.3); CREATININE 0.9 mg/dL (0.6-1.2); MAGNESIUM 2.2 mg/dL (1.7-2.8); POTASSIUM 4.1 mmol/L (3.5-5.0); TOTAL PROTEIN 7.6 g/dL (6.7-8.2)
[2020-11-13] MEDS ORDERED: METOPROLOL 5 MG/5 ML VIAL IVP STA (00:42)
[2020-11-13] MEDS ORDERED: APIXABAN 5 MG TABLET PO STA (02:52)
--- NOTE | 2020-11-13 02:56 | ED Physician Documentation ---
PD HPI CHEST PAIN - Stated complaint Stated Complaint: RAPID HR - Chief complaint Chief Complaint: Cardiac - History obtained from History obtained from: Patient, EMS - History of Present Illness Timing - onset: How many days ago (3-4) Timing - onset during: Light activity Timing - duration: Days Timing - details: Waxing and waning Quality: Aching (he states has felt irregular heart rate, fast at times, for past 3-4 days. Has chest pressure/tightness intermittently. Seen here in ER yesterday and transferred to [facility]. Treat and release from ER with rate controlled atrial flutter. chest pressure increased few hours ago and high BP. HR in 80-90) Location: Substernal. No: Epigastric Radiation: No: Jaw, Neck, Back Improved by: No: Rest Worsened by: No: Exertion, Inspiration Associated symptoms: Palpitations. No: Shortness of air, Cough Similar symptoms before: Has not had sx before Recently seen: Emergency Dept (transferred to [facility] for concern of acute [place], was seen there with negative Trop and had HR atrial flutter slowed with IV meds. Discharged from ER. Records from [facility] show was discharged rate controlled f lutter on Metoprolol and had Eliquis added next day on callback by nurse. Not started yet.) Review of Systems Constitutional: denies: Fever, Chills, Myalgias Nose: denies: Rhinorrhea / runny nose, Congestion Throat: denies: Sore throat Cardiac: reports: Chest pain / pressure, Palpitations. denies: Pedal edema, Calf pain Respiratory: reports: Dyspnea. denies: Cough, Wheezing GI: denies: Abdominal Pain, Nausea, Diarrhea Musculoskeletal: denies: Extremity swelling Neurologic: denies: Near syncope, Altered mental status PD PAST MEDICAL HISTORY - Past Medical History Past Medical History: Yes Cardiovascular: Hypertension, [place], Atrial flutter, Atrial fibrillation Respiratory: Asthma, Sleep apnea Neuro: None Endocrine/Autoimmune: HyPOthyroidism GI: GERD : None HEENT: None Psych: Depression Musculoskeletal: Chronic back pain Derm: None - Past Surgical History Past Surgical History: Yes General: Colonoscopy, EGD Ortho: Arthroscopic surgery, Carpal Tunnel surgery, Spine surgery, Other - Present Medications Home Medications: Ambulatory Orders Medication Instructions Recorded Confirmed Albuterol Sulfate [Albuterol 2 puffs INH Q6HR 01/17/14 03/01/15 Sulfate Hfa] Amitriptyline [Elavil] 100 mg PO QPM 01/17/14 03/01/15 Carbidopa/Levodopa [Carbidopa-Levo 1 tab PO DAILY 01/17/14 03/01/15 10-100 mg Odt] Cyclobenzaprine [Flexeril] 10 mg PO TID 01/17/14 03/01/15 Fexofenadine [Camila] 180 mg PO DAILY 01/17/14 03/01/15 Fluticasone [Flonase] 1 spray INH DAILY 01/17/14 03/01/15 Fluticasone/Salmeterol 100/50 1 puffs INH DAILY 01/17/14 03/01/15 [Advair 100 Mcg/50 Mcg] Gabapentin 1,200 mg PO TID 01/17/14 03/01/15 Lisinopril 20 mg PO DAILY 01/17/14 03/01/15 Methadone [Methadone Hcl] 10 mg PO BID 01/17/14 03/01/15 Omeprazole [PriLOSEC] 20 mg PO BID 01/17/14 03/01/15 cloNIDine HCL [Clonidine HCl] 0.1 mg PO BID 01/25/14 03/01/15 Bupropion HCl [Bupropion HCl Sr] 150 mg PO BID 07/07/14 03/01/15 Calcium Carbonate [Calcium] 500 mg PO DAILY 07/07/14 03/01/15 Hydrochlorothiazide 25 mg PO DAILY 07/07/14 03/01/15 Liothyronine Sodium [Cytomel] 25 mcg PO DAILY 07/07/14 03/01/15 Vardenafil HCl [Levitra] 20 mg PO DAILY PRN 07/07/14 03/01/15 Vit D3-Vit K/Berberine/Hops 1 each PO DAILY 07/07/14 03/01/15 [Ostera Tablet] Tadalafil [Cialis] 20 mg PO DAILY 10/27/14 03/01/15 diphenhydrAMINE [Benadryl] 25 mg PO Q4HR PRN 10/27/14 03/01/15 modafiniL [Modafinil] 200 mg 10/27/14 03/01/15 Levothyroxine [Synthroid] 50 mg PO DAILY 03/01/15 03/01/15 Oxycodone HCl/Acetaminophen 1 - 2 tab PO Q4H PRN #15 tablet 06/17/15 [Percocet 5-325 mg Tablet] Ciproflox/Dexameth Otic Drops 4 drops LEFTEAR BID 7 Days #1 07/13/17 [Ciprodex] bottle cephALEXin [Keflex] 500 mg PO Q6H #19 capsule 09/22/18 Levofloxacin [Levaquin] 500 mg PO DAILY PM #7 tablet 01/10/19 Sulfamethoxazole/Trimethoprim 1 each PO BID 7 Days #14 tablet 06/24/19 [Sulfamethoxazole-Tmp Ds Tablet] cephALEXin [Keflex] 500 mg PO Q6H #28 capsule 06/24/19 - Allergies Allergies/Adverse Reactions: Allergies Allergy/AdvReac Type Severity Reaction Status Date / Time Iodine and Iodide Containing Allergy Severe Respiratory Verified 11/11/20 06:07 Produc morphine Allergy Respiratory Verified 11/11/20 06:07 codeine AdvReac Nausea Verified 11/11/20 06:07 promethazine HCl * AdvReac Nausea Verified 11/11/20 06:07 [From Phenergan] alpat Allergy Unknown Uncoded 01/09/19 23:52 contrast dye Allergy Unknown Uncoded 01/09/19 23:52 iv dye Allergy Respiratory Uncoded 01/09/19 23:52 - Social History Does the pt smoke?: No Smoking Status: Never smoker Does the pt drink ETOH?: No Does the pt have substance abuse?: No - Immunizations Immunizations are current?: Yes - POLST Patient has POLST: No PD ED PE NORMAL - Vitals Vital signs reviewed: Yes - General General: Alert and oriented X 3, No acute distress, Well developed/nourished - HEENT HEENT: Moist mucous membranes, Pharynx benign - Neck Neck: Supple, no meningeal sign, No adenopathy - Cardiac Cardiac: No: RRR (fairly regular with mild 1/6 murmur. Monitor showing atrial flutter with 3:1 conduction. ) - Respiratory Respiratory: Clear bilaterally - Abdomen Abdomen: Soft, Non tender - Back Back: No CVA TTP - Derm Derm: Normal color, Warm and dry - Extremities Extremities: No deformity, No tenderness to palpate, No edema, No calf tenderness / cord - Neuro Neuro: Alert and oriented X 3, No motor deficit, Normal speech Results - Vitals Vitals: Vital Signs - 24 hr 11/12/20 11/13/20 11/13/20 23:42 00:20 00:25 Temperature 36.3 C L Heart Rate 95 91 75 Respiratory 18 Rate Blood Pressure 141/105 H 121/81 H 128/91 H O2 Saturation 97 11/13/20 11/13/20 11/13/20 00:36 01:00 01:52 Temperature Heart Rate 72 69 77 Respiratory 16 Rate Blood Pressure 123/78 129/76 143/98 H O2 Saturation 100 11/13/20 11/13/20 11/13/20 02:00 02:30 03:00 Temperature Heart Rate 70 71 70 Respiratory 16 16 Rate Blood Pressure 144/85 H 128/86 H 137/87 H O2 Saturation 98 97 Oxygen O2 Source Room air - EKG (time done) 23:36 Rate: Rate (enter#) (96) Rhythm: Atrial flutter Intervals: Wide QRS - Labs Labs: Laboratory Tests 11/13/20 11/13/20 11/13/20 00:03 00:03 00:03 WBC 10.4 RBC 5.20 Hgb 14.6 Hct 43.5 MCV 83.7 MCH 28.1 MCHC 33.6 RDW 17.2 H Plt Count 286 MPV 9.7 Neut # (Auto) 6.4 Lymph # (Auto) 2.3 Mingo # (Auto) 1.1 H Eos # (Auto) 0.6 Baso # (Auto) 0.1 Absolute Nucleated RBC 0.00 Nucleated RBC % 0.0 Sodium 135 Potassium 4.1 Chloride 101 Carbon Dioxide 26 Anion Gap 8.0 BUN 15 Creatinine 0.9 Estimated GFR (MDRD) 85 L Glucose 111 H Calcium 9.4 Magnesium 2.2 Total Bilirubin 0.7 AST 21 ALT 10 Alkaline Phosphatase 62 Troponin I High Sens B-Natriuretic Peptide 9 Total Protein 7.6 Albumin 4.3 Globulin 3.3 Albumin/Globulin Ratio 1.3 Lipase 20 L 11/13/20 00:03 WBC RBC Hgb Hct MCV MCH MCHC RDW Plt Count MPV Neut # (Auto) Lymph # (Auto) Mingo # (Auto) Eos # (Auto) Baso # (Auto) Absolute Nucleated RBC Nucleated RBC % Sodium Potassium Chloride Carbon Dioxide Anion Gap BUN Creatinine Estimated GFR (MDRD) Glucose Calcium Magnesium Total Bilirubin AST ALT Alkaline Phosphatase Troponin I High Sens 4.2 B-Natriuretic Peptide Total Protein Albumin Globulin Albumin/Globulin Ratio Lipase - Rads (name of study) chest xray Radiology: Prelim report reviewed (no acute process), See rad report PD MEDICAL DECISION MAKING - ED course Complexity details: re-evaluated patient (Better rate controlled now in the 60- 70 range though still with 3-1 conduction. Review of [facility] ER notes show discharge with rate controlled flutter as well.), considered differential, d/w patient Departure - Departure Disposition: Home, Self Care Clinical Impression: Atrial flutter with controlled response Chest pain Qualifiers: Chest pain type: precordial pain Qualified Code(s): R07.2 - Precordial pain Condition: Stable Record reviewed to determine appropriate education?: Yes Instructions: ED Afib Follow-Up: Angela De Oliveira PA-C [Primary Care Provider] - Horacio Hunter MD [Physician No Access] - Comments: Your records from [facility] did show that you were discharged still in atrial flutter at that time. Their intention was to have you on the beta-blockers and blood thinners and follow-up with cardiology. Your symptoms suggest that the heart rate is going faster at times with your sy mptoms. I would have you increase your metoprolol from 25 mg daily to 25 mg twice daily. This should help with your blood pressure as well. Continue or start the prescribed blood thinner as well. Call the cardiology office Sunday for a follow-up appointment hopefully in the shorter-term. Return to the ER if recurrent pain episodes, lightheadedness, fast heart rate consistently or other concerns. Discharge Date/Time: 11/13/20 03:18
[2020-11-13 03:07] VITALS: BP 137/87
--- NOTE | 2020-11-13 10:16 | XRAY Report ---
PROCEDURE: Chest 1 View X-Ray INDICATIONS: Chest Pain TECHNIQUE: One view of the chest was acquired. COMPARISON: 01/09/2019,, 02/12/2014. Correlation is also made with rib plain films 04/26/2020. FINDINGS: Surgical changes and devices: None. Lungs and pleura: There is mild blunting of the right costophrenic angle. No pneumothorax is seen. Th e left lung appears clear. No focal infiltrates are seen. Mediastinum: Mediastinal contours appear normal. Heart size is normal. Bones and chest wall: No suspicious bony lesions. Age-appropriate degenerative changes are seen. O verlying soft tissues appear unremarkable. IMPRESSION: Likely small right-sided pleural effusion or scarring. The appearance is similar to 2019. Note: No significant discrepancy from the preliminary report. Reviewed by: Lester Baldwin MD on 11/13/2020 9:15 AM JIMMY Approved by: Lester Baldwin MD on 11/13/2020 9:15 AM JIMMY Station ID: [id number]
== END 2020-11-13 03:18 | disposition home or self-care (01) ==
LOC: EDUNIT# → EDBD → ED 23:35
DX: I48.92 Unspecified atrial flutter (principal); I48.91 Unspecified atrial fibrillation; I10 Essential (primary) hypertension; I25.2 Old myocardial infarction
CPT/HCPCS: 36415; 71045; 80053; 83690; 83735; 83880; 84484; 85025; 93005; 96361; 96374; 96376; 99284; A9270

== ENCOUNTER 2021-02-23 08:36 | Outpatient (CLI) | payer MEDICARE, OTHER | END 2021-02-23 08:37 | disposition home or self-care (01) | LOC: RT 08:36 | PROVIDERS: ATTEND Internal Medicine | DX: Z01.810 Encounter for preprocedural cardiovascular examination (principal) | CPT/HCPCS: 93005 ==

== ENCOUNTER 2021-08-24 12:59 | Outpatient (CLI) | payer MEDICARE, OTHER ==
--- NOTE | 2021-08-25 08:04 | Ultrasound Report ---
PROCEDURE: Retroperitoneal INDICATIONS: LEFT FLANK PAIN TECHNIQUE: Real-time scanning was performed of the retroperitoneal organs, with image documentation. COMPARISON: CT abdomen without contrast, 02/20/2014. FINDINGS: Kidneys: Kidneys are normal in size. Right kidney measures 12.6 cm long; left kidney measures 11.8 cm long. Right renal cortical thickness is 1.83 cm; left renal cortical thickness is 1.60 cm. There is a 3.4 x 3.2 x 2 point centimeter simple cyst in the superior pole of the right kidney. A 3.7 x 3. 5 x 3.7 cm cyst is seen in the superior pole of left kidney. No solid masses, hydronephrosis, or neph rolithiasis. Urinary bladder: Prevoid volume 252 mL. Postvoid volume 52.5 mL. The ureteral jets were visualized on both sides. Prostate is enlarged. IMPRESSION: 1. No kidney stones or hydronephrosis. 2. Bilateral renal cysts. 3. Enlarged prostate. There is 52.5 mL postvoid residual. Reviewed by: Denver Mallory MD on 08/25/2021 8:03 AM PST Approved by: Denver Mallory MD on 08/25/2021 8:03 AM PST Station ID: [id number]
== END 2021-08-24 13:00 | disposition home or self-care (01) ==
LOC: DI 12:59
PROVIDERS: ATTEND Internal Medicine
DX: R10.9 Unspecified abdominal pain (principal); N28.1 Cyst of kidney, acquired; N40.0 Benign prostatic hyperplasia without lower urinary tract symptoms

== ENCOUNTER 2022-02-22 08:07 | Outpatient (CLI) | payer MEDICARE, OTHER | END 2022-02-22 08:08 | disposition home or self-care (01) | LOC: RT 08:07 | PROVIDERS: ATTEND Internal Medicine | DX: Z01.810 Encounter for preprocedural cardiovascular examination (principal); I45.10 Unspecified right bundle-branch block | CPT/HCPCS: 93005 ==

== ENCOUNTER 2022-05-16 08:43 | Outpatient (CLI) | payer MEDICARE, OTHER ==
[2022-05-16 09:01] LABS: BASOPHILS # (AUTO) 0.1 10^3/uL (0.0-0.1); BASOPHILS % (AUTO) 0.7 %; EOSINOPHILS # (AUTO) 0.4 10^3/uL (0.0-0.7); EOSINOPHILS % (AUTO) 4.8 %; HCT - HEMATOCRIT 43.4 % (42.0-52.0); HGB - HEMOGLOBIN 13.6 g/dL (14.0-18.0); LYMPHOCYTES # (AUTO) 2.4 10^3/uL (1.5-3.5); MEAN CORPUSCULAR HEMOGLOBIN 24.7 pg (27.0-31.0); MEAN CORPUSCULAR HGB CONC 31.3 g/dL (32.0-36.0); MEAN CORPUSCULAR VOLUME 78.9 fL (80.0-94.0); MEAN PLATELET VOLUME 9.4 fL (7.4-11.4); MONOCYTES # (AUTO) 1.1 10^3/uL (0.0-1.0); MONOCYTES % (AUTO) 13.5 %; NEUTROPHILS # (AUTO) 4.3 10^3/uL (1.5-6.6); NEUTROPHILS % (AUTO) 51.6 %; PLT - PLATELET COUNT 289 10^3/uL (130-450); RED CELL DISTRIBUTION WIDTH 18.3 % (12.0-15.0); WHITE BLOOD COUNT 8.3 x10^3/uL (4.8-10.8)
[2022-05-16 09:14] LABS: CREATININE,URINE 160.7 mg/dL; MICROALBUM/CREATININE RATIO,UR 3.1 ug/mg (<30.0); MICROALBUMIN,URINE 0.5 mg/dL (0-300.0)
[2022-05-16 09:31] LABS: THYROID STIMULATING HORMONE 2.08 uIU/mL (0.34-5.60)
[2022-05-16 10:17] LABS: ALBUMIN/GLOBULIN RATIO 1.2 (1.0-2.2); ALKALINE PHOSPHATASE 79 IU/L (42-121); ALT ALANINE AMINOTRANSFERASE 19 IU/L (10-60); AST ASPARTATE AMINOTRANSFERASE 22 IU/L (10-42); BILIRUBIN,TOTAL 0.4 mg/dL (0.2-1.0); BUN - BLOOD UREA NITROGEN 20 mg/dL (6-20); CALCIUM 9.2 mg/dL (8.5-10.3); CARBON DIOXIDE - CO2 30 mmol/L (21-32); CHLORIDE 97 mmol/L (101-111); CHOL/HDL RATIO 3.1 (<5.0); CHOLESTEROL 156 mg/dL; GFR - MDRD 75 (>89); GLUCOSE 98 mg/dL (70-100); HDL CHOLESTEROL 51 mg/dL; LDL CHOLESTEROL,CALCULATED 92 mg/dL; LDL/HDL RATIO 1.8 (<3.6); POTASSIUM 4.5 mmol/L (3.5-5.0); SODIUM 134 mmol/L (135-145); TOTAL PROTEIN 7.4 g/dL (6.7-8.2); TRIGLYCERIDES 65 mg/dL; VLDL CHOLESTEROL 13 mg/dL
[2022-05-16 10:31] LABS: ESTIMATED AVERAGE GLUCOSE 123 mg/dL (70-100); HEMOGLOBIN A1c% 5.9 % (4.27-6.07)
== END 2022-05-16 08:44 | disposition home or self-care (01) ==
LOC: LAB 08:43
PROVIDERS: ATTEND Urology
DX: I10 Essential (primary) hypertension (principal); R73.01 Impaired fasting glucose; E03.9 Hypothyroidism, unspecified; N40.1 Benign prostatic hyperplasia with lower urinary tract symptoms; E29.1 Testicular hypofunction
CPT/HCPCS: 36415; 80053; 80061; 82043; 82570; 83036; 83721; 84153; 84403; 84443; 85025

== ENCOUNTER 2022-09-01 15:15 | Emergency (ER) | payer MEDICARE, OTHER ==
--- NOTE | 2022-09-01 16:01 | ED Physician Documentation ---
PD HPI LOWER EXT INJURY - Stated complaint Stated Complaint: RT KNEE PX - Chief complaint Chief Complaint: Trauma Ext - History obtained from History obtained from: Patient - History of Present Illness PD HPI LOW EXT INJURY LOCATION: Right, Knee Type of injury: Other (initially he was kneeling and started to get up and felt pain in anterior knee. [place] unstable walking on it. Had improved reasonably and today had abrupt pop and then fell forward due to pain and weakness of knee. Had effusion and pain now.) Where injury occurred: Home Timing - onset: Today (initially 3 weeks ago but was doing better. Now current pain was 2 1/2 hours ago.) Associated symptoms: Swelling. No: Weakness, Numbness Review of Systems Constitutional: denies: Fever, Chills Skin: denies: Abrasion (s), Laceration (s) Neurologic: denies: Focal weakness, Numbness PD PAST MEDICAL HISTORY - Past Medical History Cardiovascular: Hypertension, NE, Atrial flutter, Atrial fibrillation Respiratory: Asthma, Sleep apnea Neuro: None Endocrine/Autoimmune: HyPOthyroidism GI: GERD : None HEENT: None Psych: Depression Musculoskeletal: Chronic back pain Derm: None - Past Surgical History Past Surgical History: Yes General: Colonoscopy, EGD Ortho: Arthroscopic surgery, Carpal Tunnel surgery, Spine surgery, Other - Present Medications Home Medications: Ambulatory Orders Medication Instructions Recorded Confirmed Albuterol Sulfate [Albuterol 2 puffs INH Q6HR 01/17/14 03/01/15 Sulfate Hfa] Amitriptyline [Elavil] 100 mg PO QPM 01/17/14 03/01/15 Carbidopa/Levodopa [Carbidopa-Levo 1 tab PO DAILY 01/17/14 03/01/15 10-100 mg Odt] Cyclobenzaprine [Flexeril] 10 mg PO TID 01/17/14 03/01/15 Fexofenadine [Camila] 180 mg PO DAILY 01/17/14 03/01/15 Fluticasone [Flonase] 1 spray INH DAILY 01/17/14 03/01/15 Fluticasone/Salmeterol 100/50 1 puffs INH DAILY 01/17/14 03/01/15 [Advair 100 Mcg/50 Mcg] Gabapentin 1,200 mg PO TID 01/17/14 03/01/15 Lisinopril 20 mg PO DAILY 01/17/14 03/01/15 Methadone [Methadone Hcl] 10 mg PO BID 01/17/14 03/01/15 Omeprazole [PriLOSEC] 20 mg PO BID 01/17/14 03/01/15 cloNIDine HCL [Clonidine HCl] 0.1 mg PO BID 01/25/14 03/01/15 Bupropion HCl [Bupropion HCl Sr] 150 mg PO BID 07/07/14 03/01/15 Calcium Carbonate [Calcium] 500 mg PO DAILY 07/07/14 03/01/15 Liothyronine Sodium [Cytomel] 25 mcg PO DAILY 07/07/14 03/01/15 Vardenafil HCl [Levitra] 20 mg PO DAILY PRN 07/07/14 03/01/15 Vit D3-Vit K/Berberine/Hops 1 each PO DAILY 07/07/14 03/01/15 [Ostera Tablet] hydroCHLOROthiazide 25 mg PO DAILY 07/07/14 03/01/15 [Hydrochlorothiazide] Tadalafil [Cialis] 20 mg PO DAILY 10/27/14 03/01/15 diphenhydrAMINE [Benadryl] 25 mg PO Q4HR PRN 10/27/14 03/01/15 modafiniL [Modafinil] 200 mg 10/27/14 03/01/15 Levothyroxine [Synthroid] 50 mg PO DAILY 03/01/15 03/01/15 Oxycodone HCl/Acetaminophen 1 - 2 tab PO Q4H PRN #15 tablet 06/17/15 [Percocet 5-325 mg Tablet] Ciproflox/Dexameth Otic Drops 4 drops LEFTEAR BID 7 Days #1 07/13/17 [Ciprodex] bottle cephALEXin [Keflex] 500 mg PO Q6H #19 capsule 09/22/18 levoFLOXacin [Levaquin] 500 mg PO DAILY PM #7 tablet 01/10/19 Sulfamethoxazole/Trimethoprim 1 each PO BID 7 Days #14 tablet 06/24/19 [Sulfamethoxazole-Tmp Ds Tablet] cephALEXin [Keflex] 500 mg PO Q6H #28 capsule 06/24/19 Meloxicam [Mobic] 7.5 mg PO BID 10 Days #20 tablet 09/01/22 Oxycodone HCl 10 mg PO Q6H PRN #20 tablet 09/01/22 - Allergies Allergies/Adverse Reactions: Allergies Allergy/AdvReac Type Severity Reaction Status Date / Time Iodine and Iodide Containing Allergy Severe Respiratory Verified 09/01/22 15:59 Produc morphine Allergy Respiratory Verified 09/01/22 15:59 codeine AdvReac Nausea Verified 09/01/22 15:59 promethazine HCl * AdvReac Nausea Verified 09/01/22 15:59 [From Phenergan] alpat Allergy Unknown Uncoded 09/01/22 15:59 contrast dye Allergy Unknown Uncoded 09/01/22 15:59 iv dye Allergy Respiratory Uncoded 09/01/22 15:59 - Social History Does the pt smoke?: No Smoking Status: Never smoker Does the pt drink ETOH?: No Does the pt have substance abuse?: No - Immunizations Immunizations are current?: Yes - POLST Patient has POLST: No PD ED PE NORMAL - Vitals Vital signs reviewed: Yes - General General: Alert and oriented X 3, Well developed/nourished, Other (appears in pain. ) - Derm Derm: Normal color, Warm and dry - Extremities Extremities: Other (right knee with moderate effussion and tenderness, mostly anteriorly. Marked pain with Drawer and some laxity. valgus without pain. He does have a lot of pain with just passive rotational movment. ) - Neuro Neuro: Alert and oriented X 3, No motor deficit, No sensory deficit Results - Vitals Vitals: Vital Signs - 24 hr 09/01/22 09/01/22 15:53 17:41 Temperature 36.3 C L Heart Rate 78 61 Respiratory 15 16 Rate Blood Pressure 141/84 H 124/76 O2 Saturation 98 94 Oxygen O2 Source Room air - Rads (name of study) right knee Relevant Findings:: Prelim report reviewed, EMP independent interpretation of test (moderate effusion. arthritic changes. No fractures. ), See rad report PD Medical Decision Making - ED course Complexity details: reviewed results, considered differential (he is on chronic pain meds, so will need higher dose to have effect due to tolerance. given extra meds here in ER with iM Dilaudid. He was improved reasonably better. Given PO oxycodone to last a bit more, since he said he is not sure how getting to pharmacy, will likely not be until tomorrow. ), d/w patient Reviewed Lab Results: xray without fractures. exam of knee limited by guading and pain. oncern for anterior cruciate and/or meniscal tear. can give knee immobilzer and crutches. Departure - Departure Disposition: 01 Home, Self Care Clinical Impression: Knee pain, acute Qualifiers: Laterality: right Qualified Code(s): M25.561 - Pain in right knee Knee internal derangement Qualifiers: Laterality: right Qualified Code(s): M23.91 - Unspecified internal derangement of right knee Condition: Stable Record reviewed to determine appropriate education?: Yes Instructions: ED Meniscal Injury Knee Poss Follow-Up: Clifton Rivera MD [Primary Care Provider] - Seda Park MD [Physician No Access] - Prescriptions: Meloxicam [Mobic] 7.5 mg PO BID 10 Days #20 tablet Oxycodone HCl 10 mg PO Q6H PRN #20 tablet PRN Reason: Pain 5-7 Comments: Given the degree of pain along with some swelling, it is hard to tell clinically what is wrong with the knee as yet. It would be fairly suspicious for a possible ACL injury versus a meniscal injury. I would suggest knee overlies 0 to help support the knee. Crutches when up and around for partial to no weightbearing. Continue your usual home medications. Add meloxicam anti-inflammatory twice daily with food for the next 7 to 10 days. Alternatively could use naproxen or such [id number]. Add oxycodone 10 mg 4 times daily if needed for pain in the short-term. Elevate ice and rest your knee often to help the swelling go down. Follow-up with your orthopedist, Seda Park, next week for reevaluation. It may be easier to assess the type of injury based on exam at that point. Alternatively they could opt for imaging of the knee. I sent your prescription to your preferred pharmacy, [email or web address]. I am prescribing a short course of narcotic pain medication for you. These are potentially dangerous and addictive medications that should be used carefully. These medications may constipate you. Take an [id number]-[id number] stool softener such as docusate twice daily with plenty of water while taking these medications. If you go 24 hours without a bowel movement, take osdu-kxc-[id number] MiraLAX, per package instructions. Do not drink or drive while taking these medications. If you received narcotic or sedating medications while in the emergency departme nt do not drive for 24 hours. Store this medication in a safe, secure place and out of reach of children. It is a violation of federal law to give or sell this medication to another person or to use in a manner other than prescribed. The ED will not refill narcotic prescriptions, including prescriptions lost or stolen. You can dispose of unwanted medications at the [facility]'s office or at several pharmacies such as [facility]. Discharge Date/Time: 09/01/22 17:57
[2022-09-01] MEDS ORDERED: HYDROmorphone 2 MG/ML VIAL IM STA (16:25)
[2022-09-01] MEDS ORDERED: KETOROLAC 30 MG/ML VIAL IM STA (16:26)
--- NOTE | 2022-09-01 17:02 | XRAY Report ---
PROCEDURE: Knee 3 View RT INDICATIONS: pain and gave out yesterday TECHNIQUE: 3 views of the right knee were acquired. COMPARISON: None. FINDINGS: Bones: No acute fractures or dislocations. No suspicious bony lesions. Moderate supraspinatus teari ng is seen at the medial femorotibial compartment and the lateral portion of the patellofemoral monalisa rtment. There is mild narrowing of the lateral femorotibial compartment. Chronic healed fractures are seen at the fibular and tibial shafts with mild residual deformity. Soft tissues: Moderate joint effusion. Multiple ossified loose bodies are seen surrounding the knee. IMPRESSION: 1.No acute osseous abnormality. If there is clinical concern or persistent symptoms, additional imagi ng such as repeat radiographs or advanced imaging (e.g. CT, MRI) may be helpful for further evaluatio n. 2.Tricompartmental osteoarthrosis. 3.Moderate joint effusion with multiple ossified intra-articular loose bodies. Reviewed by: King Larkin MD on 09/01/2022 5:01 PM PST Approved by: King Larkin MD on 09/01/2022 5:01 PM PST Station ID: [id number]
[2022-09-01] MEDS ORDERED: oxyCODONE 5 MG TABLET PO STA (17:17)
[2022-09-01 17:42] VITALS: BP 124/76
== END 2022-09-01 17:57 | disposition home or self-care (01) ==
LOC: ED 15:15
DX: M23.91 Unspecified internal derangement of right knee (principal); I10 Essential (primary) hypertension; I25.2 Old myocardial infarction; I48.91 Unspecified atrial fibrillation; E03.9 Hypothyroidism, unspecified; Z79.899 Other long term (current) drug therapy; Z79.51 Long term (current) use of inhaled steroids
CPT/HCPCS: 73562; 96372; 99283; 99284; A9270; J1170

== ENCOUNTER 2022-11-21 08:45 | Outpatient (CLI) | payer MEDICARE, OTHER ==
[2022-11-21 09:02] LABS: BASOPHILS # (AUTO) 0.1 10^3/uL (0.0-0.1); BASOPHILS % (AUTO) 0.6 %; EOSINOPHILS # (AUTO) 0.4 10^3/uL (0.0-0.7); HCT - HEMATOCRIT 43.3 % (42.0-52.0); HGB - HEMOGLOBIN 13.7 g/dL (14.0-18.0); LYMPHOCYTES # (AUTO) 2.2 10^3/uL (1.5-3.5); MEAN CORPUSCULAR HEMOGLOBIN 24.9 pg (27.0-31.0); MEAN CORPUSCULAR HGB CONC 31.6 g/dL (32.0-36.0); MEAN CORPUSCULAR VOLUME 78.7 fL (80.0-94.0); MEAN PLATELET VOLUME 9.4 fL (7.4-11.4); MONOCYTES # (AUTO) 1.1 10^3/uL (0.0-1.0); MONOCYTES % (AUTO) 12.9 %; NEUTROPHILS # (AUTO) 4.7 10^3/uL (1.5-6.6); NEUTROPHILS % (AUTO) 55.1 %; PLT - PLATELET COUNT 303 10^3/uL (130-450); RED CELL DISTRIBUTION WIDTH 16.8 % (12.0-15.0); WHITE BLOOD COUNT 8.6 x10^3/uL (4.8-10.8)
[2022-11-21 09:03] LABS: BILIRUBIN,URINE NEGATIVE (NEGATIVE); GLUCOSE, URINE (UA) NEGATIVE (NEGATIVE); KETONES,URINE (UA) NEGATIVE (NEGATIVE); LEUKOCYTE ESTERASE, URINE NEGATIVE (NEGATIVE); NITRITE,URINE NEGATIVE (NEGATIVE); OCCULT BLOOD,URINE NEGATIVE (NEGATIVE); PH,URINE 5.5 PH (5.0-7.5); PROTEIN,URINE NEGATIVE (NEGATIVE); UROBILINOGEN,URINE 0.2 (NORMAL) E.U./dL (NORMAL)
[2022-11-21 09:12] LABS: CREATININE 1.1 mg/dL (0.6-1.2); POTASSIUM 3.8 mmol/L (3.5-5.0)
[2022-11-21 09:26] LABS: CLARITY,URINE CLEAR (CLEAR)
[2022-11-21 09:34] LABS: BACTERIA,URINE Rare /HPF (None Seen); RBC,URINE 0-5 /HPF (0-5); SQUAMOUS EPITHELIAL CELL,UR RARE Squamous (<= Few); WBC,URINE 0-3 /HPF (0-3)
[2022-11-21 12:16] LABS: ESTIMATED AVERAGE GLUCOSE 131 mg/dL (70-100); HEMOGLOBIN A1c% 6.2 % (4.27-6.07)
== END 2022-11-21 08:46 | disposition home or self-care (01) ==
LOC: LAB 08:45
PROVIDERS: ATTEND Orthopaedic Surgery
DX: Z01.818 Encounter for other preprocedural examination (principal); R73.9 Hyperglycemia, unspecified; N39.0 Urinary tract infection, site not specified
CPT/HCPCS: 36415; 80048; 81001; 83036; 85025; 87086; 93005

== ENCOUNTER 2023-05-02 08:46 | Outpatient (CLI) | payer MEDICARE, OTHER ==
[2023-05-02 09:04] LABS: BASOPHILS % (AUTO) 0.6 %; EOSINOPHILS # (AUTO) 0.4 10^3/uL (0.0-0.7); EOSINOPHILS % (AUTO) 5.2 %; HCT - HEMATOCRIT 40.7 % (42.0-52.0); HGB - HEMOGLOBIN 12.9 g/dL (14.0-18.0); LYMPHOCYTES # (AUTO) 1.7 10^3/uL (1.5-3.5); LYMPHOCYTES % (AUTO) 24.6 %; MEAN CORPUSCULAR HEMOGLOBIN 25.6 pg (27.0-31.0); MEAN CORPUSCULAR HGB CONC 31.7 g/dL (32.0-36.0); MEAN CORPUSCULAR VOLUME 80.8 fL (80.0-94.0); MONOCYTES # (AUTO) 0.8 10^3/uL (0.0-1.0); MONOCYTES % (AUTO) 11.8 %; NEUTROPHILS # (AUTO) 3.9 10^3/uL (1.5-6.6); NEUTROPHILS % (AUTO) 57.4 %; PLT - PLATELET COUNT 279 10^3/uL (130-450); RED BLOOD COUNT 5.04 10^6/uL (4.70-6.10); RED CELL DISTRIBUTION WIDTH 16.5 % (12.0-15.0); WHITE BLOOD COUNT 6.9 x10^3/uL (4.8-10.8)
[2023-05-02 09:21] LABS: ALBUMIN 3.8 g/dL (3.2-5.5); ALBUMIN/GLOBULIN RATIO 1.1 (1.0-2.2); ALKALINE PHOSPHATASE 63 IU/L (42-121); ALT ALANINE AMINOTRANSFERASE 16 IU/L (10-60); AST ASPARTATE AMINOTRANSFERASE 20 IU/L (10-42); BILIRUBIN,TOTAL 0.2 mg/dL (0.2-1.0); BUN - BLOOD UREA NITROGEN 21 mg/dL (6-20); CALCIUM 9.4 mg/dL (8.5-10.3); CARBON DIOXIDE - CO2 36 mmol/L (21-32); CHLORIDE 96 mmol/L (101-111); CHOL/HDL RATIO 3.3 (<5.0); CHOLESTEROL 144 mg/dL; CREATININE 1.2 mg/dL (0.6-1.3); GFR - MDRD 61 (>89); GLUCOSE 104 mg/dL (74-104); HDL CHOLESTEROL 44 mg/dL; LDL CHOLESTEROL,CALCULATED 85 mg/dL; LDL/HDL RATIO 1.9 (<3.6); SODIUM 135 mmol/L (135-145); TOTAL PROTEIN 7.2 g/dL (6.4-8.9); TRIGLYCERIDES 73 mg/dL (48-352); VLDL CHOLESTEROL 15 mg/dL
[2023-05-02 10:43] LABS: ESTIMATED AVERAGE GLUCOSE 123 mg/dL (70-100); HEMOGLOBIN A1c% 5.9 % (4.27-6.07)
== END 2023-05-02 08:47 | disposition home or self-care (01) ==
LOC: LAB 08:46
PROVIDERS: ATTEND Internal Medicine
DX: R73.01 Impaired fasting glucose (principal); Z12.5 Encounter for screening for malignant neoplasm of prostate; E29.1 Testicular hypofunction; I10 Essential (primary) hypertension
CPT/HCPCS: 36415; 80053; 80061; 83036; 84403; 85025; G0103; 83721; 84153

== ENCOUNTER 2023-05-09 08:43 | Outpatient (CLI) | payer MEDICARE, OTHER | END 2023-05-09 08:44 | disposition home or self-care (01) | LOC: LAB 08:43 | PROVIDERS: ATTEND Internal Medicine | DX: E29.1 Testicular hypofunction (principal) | CPT/HCPCS: 36415; 84403 ==

== ENCOUNTER 2023-08-30 12:39 | Outpatient (CLI) | payer MEDICARE, OTHER ==
--- NOTE | 2023-08-30 13:45 | Sleep Patient Instructions ---
Sleep Center Visit Summary - Patient Visit Information Reason for Visit: Initial Consultation - Patient Instructions Additional Instructions: You will continue with BiPAP therapy with pressure set at 22/10 cmH2O with 8 cmH2O pressure support. A supply prescription will be updated with your DME. I have also added an order for a new sleep study. We encourage you to continue to try to lose weight. Please follow up with the sleep care office after the sleep study. - Clinic Information Contact: [facility] [address] [place] [address] [email or web address] T: [phone]
--- NOTE | 2023-08-30 13:51 | SLEEP CARE CONSULTATION ---
Information from patient questionnaire entered by Jen Gardiner. I have reviewed and concur with the information entered by Jen Gardiner. This document represents the service I personally performed and the decisions made by me, Dotty Norton ARNP. History of Present Illness Service Date and Time: 08/30/2023 1239 Reason for Visit: New patient, Previously diagnosed sleep apnea, sleep apnea on CPAP therapy (BiPAP) Chief Complaint: reports: Unrefreshed sleep, Snoring, Observed pauses in breathing Date of Onset: MOST OF MY LIFE Usual bedtime: 11PM-2AM Time it takes to fall asleep: 2-5MINS Snores at night: Yes Observed to quit breathing while asleep: Yes Sleeps alone due to snoring: No Number of times waking at night: 0-2 Reasons for waking at night: reports: Snoring, Pain, Other (UNKNOWN) Toss, Turn, or Twitch while sleeping: Yes Recalls having dreams: Yes Usually gets out of bed at: 620AM MON-FRI 8-10M SAT AND SUN Feels refreshed in the morning: No Morning headache: Yes Sleepy or fatigued during the day: Yes Ever fallen asleep while driving: No Takes day naps: Yes Dreams during day naps: Yes Prior sleep studies: Yes Additional HPI information: SHANIKA BRANDT was previously diagnosed to have severe, AHI 54.6, obstructive sleep apnea-hypopnea syndrome at [facility] on 02/07/2007 and comes in today to establish care for BIPAP therapy. - Parasomnia Symptoms Ever been unable to move upon waking from sleep: No Walks in sleep: Yes Talks in sleep: Yes Ever acted out dreams in sleep: Yes Ever felt weak in the knees when startled or emotional: No Bothered by creepy, crawly, restless sensations in legs: Yes Problems with memory or concentration: Yes CPAP Compliance Data - Data Reviewed with Patient Average duration of nightly device use: 3 hours 10 mins Compliance rate %: 15 (161/364 days used) Current pressure setting (cmH2O): 22/10 with 8 press support Average residual AHI: 5.4 Central apnea: 4.3 Obstructive apnea: 0.6 Hypopnea: 0.1 Average large leak: 15.2 L/min Compliance data discussion: He has a [employer]Med AirCurve 10 VAuto. He is getting his supplies from [facility]. He using a full face mask, [employer]?. Subjective Missed days of use due to: reports: other (knee pain after surgery) Patient concerns: reports: condensation in mask/hose. denies: aerophagia, mask discomfort, air blowing in eyes, mask leak noise (if uses humidifier), nasal congestion, dry mouth, nose, throat, epistaxis Observed to snore while using device: No Current pressure setting perceived as: comfortable On therapy, patient: reports: sleeping better, other (takes few naps in afternoon when using it). 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 Patient is and lives in [place]. Have you smoked in the past 12 months: No Alcohol use: No Caffeine use: Yes Caffeine amount and frequency: 2-4 CANS PEPSI AT [employer] DINNER Family History Family history of sleep disordered breathing: No (don't know) Allergies and Home Medications Known drug allergies: Yes (as listed) Drug allergies reviewed: Yes Home medication list reviewed: Yes (as listed) Allergy and home medication list: Allergies Iodine and Iodide Containing Produc Allergy (Severe, Verified 08/28/23 14:19) Respiratory morphine Allergy (Verified 08/28/23 14:19) Respiratory codeine Adverse Reaction (Verified 08/28/23 14:19) Nausea vomiting promethazine HCl * [From Phenergan] Adverse Reaction (Verified 08/28/23 14:19) Nausea alpat Allergy (Uncoded 08/28/23 14:19) Unknown per centricity contrast dye Allergy (Uncoded 08/28/23 14:19) Unknown iv dye Allergy (Uncoded 08/28/23 14:19) Respiratory Home Medications Medication Instructions Recorded Confirmed Last Taken Type Albuterol Sulfate [Albuterol 2 puffs INH Q6HR 01/17/14 08/30/23 Unknown History Sulfate Hfa] Amitriptyline [Elavil] 100 mg PO QPM 01/17/14 08/30/23 Unknown History Carbidopa/Levodopa [Carbidopa-Levo 1 tab PO DAILY 01/17/14 08/30/23 Unknown History 10-100 mg Odt] Cyclobenzaprine [Flexeril] 10 mg PO TID 01/17/14 08/30/23 Unknown History Fexofenadine [Camila] 180 mg PO DAILY 01/17/14 08/30/23 Unknown History Fluticasone [Flonase] 1 spray INH DAILY 01/17/14 08/30/23 Unknown History Fluticasone/Salmeterol 100/50 1 puffs INH DAILY 01/17/14 08/30/23 Unknown History [Advair 100 Mcg/50 Mcg] Gabapentin 1,200 mg PO TID 01/17/14 08/30/23 Unknown History Lisinopril 20 mg PO DAILY 01/17/14 08/30/23 Unknown History Methadone [Methadone Hcl] 10 mg PO BID 01/17/14 08/30/23 Unknown History Omeprazole [PriLOSEC] 20 mg PO BID 01/17/14 08/30/23 Unknown History cloNIDine HCL [Clonidine HCl] 0.1 mg PO BID 01/25/14 08/30/23 Unknown History Bupropion HCl [Bupropion HCl Sr] 150 mg PO BID 07/07/14 08/30/23 Unknown History Calcium Carbonate [Calcium] 500 mg PO DAILY 07/07/14 08/30/23 Unknown History Liothyronine Sodium [Cytomel] 25 mcg PO DAILY 07/07/14 08/30/23 Unknown History Vardenafil HCl [Levitra] 20 mg PO DAILY PRN 07/07/14 08/30/23 Unknown History Vit D3-Vit K/Berberine/Hops 1 each PO DAILY 07/07/14 08/30/23 Unknown History [Ostera Tablet] hydroCHLOROthiazide 25 mg PO DAILY 07/07/14 08/30/23 Unknown History [Hydrochlorothiazide] Tadalafil [Cialis] 20 mg PO DAILY 10/27/14 08/30/23 Unknown History diphenhydrAMINE [Benadryl] 25 mg PO Q4HR PRN 10/27/14 08/30/23 Unknown History modafiniL [Modafinil] See Rx Instructions .ROUTE .COMPLEX 10/27/14 08/30/23 Unknown History Levothyroxine [Synthroid] 50 mg PO DAILY 03/01/15 08/30/23 Unknown History Oxycodone HCl/Acetaminophen 1 - 2 tab PO Q4H PRN #15 tablet 06/17/15 08/30/23 Unknown Rx [Percocet 5-325 mg Tablet] Ciproflox/Dexameth Otic Drops 4 drops LEFTEAR BID 7 Days #1 07/13/17 08/30/23 Unknown Rx [Ciprodex] bottle cephALEXin [Keflex] 500 mg PO Q6H #19 capsule 09/22/18 08/30/23 Unknown Rx levoFLOXacin [Levaquin] 500 mg PO DAILY PM #7 tablet 01/10/19 08/30/23 Unknown Rx Sulfamethoxazole/Trimethoprim 1 each PO BID 7 Days #14 tablet 06/24/19 08/30/23 Unknown Rx [Sulfamethoxazole-Tmp Ds Tablet] cephALEXin [Keflex] 500 mg PO Q6H #28 capsule 06/24/19 08/30/23 Unknown Rx Meloxicam [Mobic] 7.5 mg PO BID 10 Days #20 tablet 09/01/22 08/30/23 Unknown Rx Oxycodone HCl 10 mg PO Q6H PRN #20 tablet 09/01/22 08/30/23 Unknown Rx Review of Systems Weight loss over past 5 years: 12-16 Cardiovascular: reports: high blood pressure Respiratory: reports: shortness of breath, wheeze Gastrointestinal: reports: heartburn Psychiatric: reports: anxiety, depression Ear/Nose/Throat: reports: sinus problems, dry mouth/throat, wisdom teeth removed. denies: tonsillectomy Musculoskeletal: reports: joint pain, neck pain, back pain Immunologic: reports: sneezing, itching, allergies to food or environment Physical Exam Vital signs obtained and entered by: JEN Reed MA Blood Pressure: 130/69 (RIGHT ARM) Cuff size: regular Heart Rate: 64 O2 Saturation: 97 Height: 5 ft 11 in Weight: 254 lb 9.6 oz Body Mass Index: 35.5 BMI Classification: Obese Neck circumference: 17.5 Mouth and throat: narrow oropharynx Soft palate: long Hard palate: normal Uvula: normal Uvula visualization: 25% Mallampati Class III Tongue: enlarged in size with teeth fish on lateral edges Tonsils: 2+ Heart: regular rate and rhythm, murmur Lungs: clear bilaterally Impression and Plan 1. Obstructive Sleep Apnea-Hypopnea Syndrome, severe, with poor treatment compliance and good apnea control. On BiPAP therapy, the patient has better sleep quality. He has not been using his BiPAP consistently but when he does he has significant improvement of his sleep apnea. He has not had a sleep study since 2006 and I would like to get a new baseline. I recommend proceeding to polysomnography to confirm the diagnosis and to assess severity. I obtained agreement to proceed. The pathophysiology of obstructive sleep apnea-hypopnea syndrome was discussed with the patient and health risks of cardiovascular and cerebrovascular disease if not treated. Patient's apnea severity and rationale for treatment to reduce apnea, improve sleep quality and reduce cardiovascular and cerebrovascular events was reviewed. I also reviewed the benefit of consistent device use of BiPAP for hypertension and depression. 2. Obesity, unspecified. Currently patients BMI is 35.5. Obesity increases the risk of apnea, BiPAP pressure requirements and overall health risks especially cardiovascular and diabetes. Thus patient is advised to lose weight. * Continue BiPAP pressure at 22/10 cmH2O with pressure support 8 cmH2O * Update supply prescription * Schedule polysomnography * Attempt to lose weight. * Review instructions provided by trained office staff on how to prepare for the sleep study. * Return for follow-up after sleep study completed. Counseling Topics: Spare mask, Weight loss health impact Prescriptions: Device supplies Follow up with Sleep Care in: other (after sleep study) Plan: PSG/HST Visit Type: In Office Time Spent with Patient (minutes): 39 Provider Statement: I spent 100% of the Face to Face Visit with the patient with greater than 50% spent counseling the patient and coordination of care.
[2023-08-30 13:58] VITALS: BP 130/69; O2SAT 97
== END 2023-08-30 12:40 | disposition home or self-care (01) ==
LOC: SC 12:39
PROVIDERS: ATTEND Nurse Practitioner Family
DX: G47.33 Obstructive sleep apnea (adult) (pediatric) (principal); E66.9 Obesity, unspecified; Z68.35 Body mass index [BMI] 35.0-35.9, adult
CPT/HCPCS: 99203; G0463; 99212

== ENCOUNTER 2023-09-28 09:01 | Outpatient (CLI) | payer MEDICARE, OTHER | END 2023-09-28 09:02 | disposition home or self-care (01) | LOC: SC 09:01 | PROVIDERS: ATTEND Nurse Practitioner Family | DX: G47.33 Obstructive sleep apnea (adult) (pediatric) (principal); R09.02 Hypoxemia | CPT/HCPCS: G0399 ×2; 95806 ==

== ENCOUNTER 2023-11-06 09:38 | Outpatient (CLI) | payer MEDICARE, OTHER ==
--- NOTE | 2023-11-06 10:15 | Sleep Patient Instructions ---
Sleep Center Visit Summary - Patient Visit Information Reason for Visit: Sleep study follow-up - Patient Instructions Additional Instructions: You were here for follow up of BIPAP therapy. You will be continued on BiPAP therapy with pressure at 22/10 cmH2O. You should follow up with sleep care in [3] months. You may contact us sooner for any questions or concerns. - Clinic Information Contact: [facility] [address] [place] [id number] [email or web address] T: [phone]
--- NOTE | 2023-11-06 10:27 | SLEEP CARE CONSULTATION ---
Information from patient questionnaire entered by Jen Gardiner. I have reviewed and concur with the information entered by Jen Gardiner. This document represents the service I personally performed and the decisions made by , Dotty Norton ARNP. History of Present Illness Service Date and Time: 11/06/2023937 Initial [place] Sleepiness Scale score: 11 Current [place] Sleepiness Scale score: 16 Additional HPI information: SHANIKA BRANDT returns for follow up and results of the recently performed home sleep study. The sleep study showed moderate obstructive sleep apnea with an average AHI of 25 and britni oxygen saturation of 80%. After some discussion, the patient will continue with BiPAP therapy set at [id number] with 8 cmH2O pressure support. Patient does not drink alcohol. Patient was cautioned about risks of drowsy driving until sleepiness symptoms resolve. Sleep Study - Results Type of Sleep Study: Home sleep study (COMPLETED 09/29/23) Prior sleep studies: Yes Polysomnography/Home Sleep Study results: Physician Impression: The quality of the study is good. The length of the study is adequate (> 240 minutes). Please also see the tabulated and graphic data. 1. Obstructive Sleep Apnea-Hypopnea (ICD-10 G47.33), moderate, with an AHI of 25.0/hr and britni SaO2 of 80%. During the study, the patient had 152 apneas (152 obstructive, 0 central, 0 mixed) and 35 hypopneas. The longest episode lasted 97.5 seconds. The respiratory events occurred more frequently during supine sleep (supine AHI was 35.3 and non-supine, 15.44). 2. Hypoxemia (ICD-10 R09.02), mild, with the lowest oxygen saturation of 80 % and 80.3 minutes with SaO2 under 90%. Baseline oxygen saturation was normal (Average oxygen saturation was 91%). Allergies and Home Medications Known drug allergies: Yes (as listed) Drug allergies reviewed: Yes Home medication list reviewed: Yes (hydromorphone) Allergy and home medication list: Allergies Iodine and Iodide Containing Produc Allergy (Severe, Verified 11/01/23 10:07) Respiratory morphine Allergy (Verified 11/01/23 10:07) Respiratory codeine Adverse Reaction (Verified 11/01/23 10:07) Nausea vomiting promethazine HCl * [From Phenergan] Adverse Reaction (Verified 05/09/24 10:07) Nausea alpat Allergy (Uncoded 11/01/23 10:07) Unknown per centricity contrast dye Allergy (Uncoded 11/01/23 10:07) Unknown iv dye Allergy (Uncoded 11/01/23 10:07) Respiratory Review of Systems Review of systems same as previous: No (LEFT PARTIAL KNEE SURGERY 10/15/23) Physical Exam Vital signs obtained and entered by: JEN Reed MA Blood Pressure: 132/70 (LEFT ARM) Cuff size: long Heart Rate: 55 O2 Saturation: 98 Height: 5 ft 11 in Weight: 271 lb 9.6 oz Body Mass Index: 37.8 BMI Classification: Obese Impression and Plan 1. Obstructive Sleep Apnea-Hypopnea Syndrome, moderate. He returns after updating sleep study. It was shown to be moderate BRAULIO with average AHI of 25 with severe supine AHI. He has not been using his CPAP because he had left knee replacement surgery and is sleeping downstairs in his recliner. He cannot bring his machine down because his 2 year grandchild would play with it when he was not using it. He wants to get using it more regularly. He will try to start using it more regularly and follow up in 3 months. Patient's apnea severity and rationale for treatment to reduce apnea, improve sleep quality and reduce cardiovascular and cerebrovascular events was reviewed. I also reviewed the benefit of consistent device use of CPAP for hypertension, depression. 2. Hypoxemia, mild, with a britni oxygen saturation of 80% and 80.3 minutes spent under 90%. The baseline oxygen saturation was normal with an average oxygen saturation of 91%. 3. Obesity, unspecified. Currently patients BMI is 37.8. Obesity increases the risk of apnea, CPAP pressure requirements and overall health risks especially cardiovascular and diabetes. Thus patient is advised to lose weight. * Continue BiPAP pressure at 22/10 cmH20 with 8 cmH2O pressure support * Notify me if snoring with mask or feeling that the pressure is too much or too little * Attempt to lose weight * Call this office if any problems using CPAP * Return for follow up in 3 months, or sooner if concerns arise Counseling Topics: Weight loss health impact Follow up with Sleep Care in: 3 months Visit Type: In Office Time Spent with Patient (minutes): 25 Provider Statement: I spent 100% of the Face to Face Visit with the patient with greater than 50% spent counseling the patient and coordination of care.
[2023-11-06 10:33] VITALS: BP 132/70; O2SAT 98
== END 2023-11-06 09:39 | disposition home or self-care (01) ==
LOC: SC 09:38
PROVIDERS: ATTEND Nurse Practitioner Family
DX: G47.33 Obstructive sleep apnea (adult) (pediatric) (principal); R09.02 Hypoxemia; E66.9 Obesity, unspecified; Z68.37 Body mass index [BMI] 37.0-37.9, adult
CPT/HCPCS: 99213; G0463; 99212

== ENCOUNTER 2024-02-06 16:14 | Emergency (ER) | payer MEDICARE, OTHER ==
[2024-02-06 16:33] VITALS: BP 176/81; O2SAT 99
--- NOTE | 2024-02-06 17:29 | ED Physician Documentation ---
History of Present Illness - Stated complaint Stated Complaint: RT HAND LAC - Chief complaint Chief Complaint: Laceration - History obtained from History obtained from: Patient - History of Present Illness Timing: Prior to arrival - Additonal information Additional information: Patient is a 68-year-old male presents to the emergency department after sustaining laceration to right dorsal portion of right middle finger. Patient notes he was using a nasrin knife for cutting when he accidentally sliced his fingers. Patient has baseline third digit held in slight flexion after injury to extensor tendon multiple years ago. Patient does not feel it is worse After his injury today. Patient's last tetanus was over 5 years ago. He denies any numbness or tingling to his extremity. PD PAST MEDICAL HISTORY - Past Medical History Cardiovascular: Hypertension, OR, Atrial flutter, Atrial fibrillation Respiratory: Asthma, Sleep apnea Neuro: None Endocrine/Autoimmune: HyPOthyroidism GI: GERD : None HEENT: None Psych: Depression Musculoskeletal: Chronic back pain Derm: None - Past Surgical History Past Surgical History: Yes General: Colonoscopy, EGD Ortho: Arthroscopic surgery, Carpal Tunnel surgery, Spine surgery, Other - Present Medications Home Medications: Ambulatory Orders Medication Instructions Recorded Confirmed Albuterol Sulfate [Albuterol 2 puffs INH Q6HR 01/17/14 08/30/23 Sulfate Hfa] Amitriptyline [Elavil] 100 mg PO QPM 01/17/14 08/30/23 Carbidopa/Levodopa [Carbidopa-Levo 1 tab PO DAILY 01/17/14 08/30/23 10-100 mg Odt] Fluticasone [Flonase] 1 spray INH DAILY 01/17/14 08/30/23 Gabapentin 1,200 mg PO TID 01/17/14 08/30/23 Lisinopril 20 mg PO DAILY 01/17/14 08/30/23 Omeprazole [PriLOSEC] 20 mg PO BID 01/17/14 08/30/23 Bupropion HCl [Bupropion HCl Sr] 150 mg PO BID 07/07/14 08/30/23 Vit D3-Vit K/Berberine/Hops 1 each PO DAILY 07/07/14 08/30/23 [Ostera Tablet] hydroCHLOROthiazide 25 mg PO DAILY 07/07/14 08/30/23 [Hydrochlorothiazide] Levothyroxine [Synthroid] 50 mg PO DAILY 03/01/15 08/30/23 Albuterol Sulf [Ventolin Hfa See Rx Instructions .ROUTE .COMPLEX 08/30/23 08/30/23 Inhaler] Albuterol Sulfate [Proair See Rx Instructions .ROUTE .COMPLEX 08/30/23 08/30/23 Digihaler] Aspirin [Aspirin EC] See Rx Instructions .ROUTE .COMPLEX 08/30/23 08/30/23 Carbamide Peroxide [Ear Drops] See Rx Instructions .ROUTE .COMPLEX 08/30/23 08/30/23 Extenze See Rx Instructions .ROUTE .COMPLEX 08/30/23 Fluticasone Propion/Salmeterol See Rx Instructions .ROUTE .COMPLEX 08/30/23 08/30/23 [Advair 100-50 Diskus] Sildenafil Citrate [Sildenafil] See Rx Instructions .ROUTE .COMPLEX 08/30/23 08/30/23 Vardenafil HCl See Rx Instructions .ROUTE .COMPLEX 08/30/23 08/30/23 tiZANidine [Zanaflex] See Rx Instructions .ROUTE .COMPLEX 08/30/23 08/30/23 - Allergies Allergies/Adverse Reactions: Allergies Allergy/AdvReac Type Severity Reaction Status Date / Time Iodine and Iodide Containing Allergy Severe Respiratory Verified 02/06/24 17:15 Produc morphine Allergy Respiratory Verified 02/06/24 17:15 codeine AdvReac Nausea Verified 02/06/24 17:15 promethazine HCl * AdvReac Nausea Verified 02/06/24 17:15 [From Phenergan] alpat Allergy Unknown Uncoded 02/06/24 17:15 contrast dye Allergy Unknown Uncoded 02/06/24 17:15 iv dye Allergy Respiratory Uncoded 02/06/24 17:15 - Social History Does the pt smoke?: No Smoking Status: Never smoker Does the pt drink ETOH?: No Does the pt have substance abuse?: No - Immunizations Immunizations are current?: Yes - POLST Patient has POLST: No PD ED PE NORMAL - Vitals Vital signs reviewed: Yes - General General: Alert and oriented X 3 - HEENT HEENT: Atraumatic - Neck Neck: Supple, no meningeal sign, C-Spine cleared by NEXUS criteria - Cardiac Cardiac: RRR - Respiratory Respiratory: No respiratory distress, Clear bilaterally - Abdomen Abdomen: Normal bowel sounds - Back Back: No CVA TTP - Derm Derm: Normal color, Warm and dry - Extremities Extremities: No deformity - Neuro Neuro: Alert and oriented X 3 Eye Opening: Spontaneous Motor: Obeys Commands Verbal: Oriented GCS Score: 15 Results - Vitals Vitals: Oxygen O2 Source Room air PD Medical Decision Making - ED course Complexity details: reviewed old records, re-evaluated patient ED course: Patient is a 68-year-old male presenting to the emergency department after sustaining injury to right middle finger when using a nasrin knife for cutting earlier today. Patient's last tetanus was over 5 years ago. He sustained abrasion to distal portion of phalanx on examination. No significant bleeding. Patient is a 68-year-old male presents to the emergency department after sustaining laceration to right dorsal portion of right middle finger. Patient has baseline third digit held in slight flexion after injury to extensor tendon multiple years ago. Patient does not feel it is worse he able to fully extend on active range of motion and fully flex on passive ROM. Good capillary refill. Given wound not significantly contaminated that was cleaned here in emergency department given wound is on DIP joint will cover with dermabond to help with wound healing. Pippa instructed this can cause higher increase in infection. He was instructed to return with any new or worsening infections. Departure - Departure Disposition: 01 Home, Self Care Clinical Impression: Laceration of right middle finger Condition: Good Instructions: ED Laceration Hand Comments: Keep your wound clean dry follow-up with PCP in 1 week for wound evaluation. Dermabond will slowly come off on its own do not scrub hand use splint to prevent any further injury to right digit. Forms: PCP List Discharge Date/Time: 02/06/24 18:24
[2024-02-06] MEDS: TETANUS/DIPHTHERIA/PERTUSSIS 0.5 ML SYRINGE IM ONE (17:44)
== END 2024-02-06 18:24 | disposition home or self-care (01) ==
LOC: ED 16:14
DX: S61.212A Laceration without foreign body of right middle finger without damage to nail, initial encounter (principal); W26.0XXA Contact with knife, initial encounter; I10 Essential (primary) hypertension; I48.91 Unspecified atrial fibrillation; E03.9 Hypothyroidism, unspecified; Z23 Encounter for immunization; Z79.899 Other long term (current) drug therapy; Z79.82 Long term (current) use of aspirin; Z79.51 Long term (current) use of inhaled steroids
CPT/HCPCS: 12001; 90471; 99283